=== PATIENT | female | born 1955 | race Caucasian/White ===

== ENCOUNTER 2018-01-10 16:39 | Outpatient (CLI) | payer BC, SELFPAY ==
[2018-01-10 17:03] LABS: HGB 12.1 g/dL (12.0-15.5); Mean Corp. HGB Concentration 33.6 g/dL (32.0-36.0); Mean Corpuscular Hemoglobin 32.9 pg (27.0-33.0); Mean Corpuscular Volume 97.8 fL (80-95); Mean Platelet Volume 9.1 fL (8.0-11.0); Platelet Count 277 x1000/uL (130-400); RBC 3.68 m/cumm (4.00-5.20); RBC Distribution Width 13.2 % (11.7-14.6); White Blood Cell Count 4.95 k/cumm (4.4-10.8)
[2018-01-10 19:36] LABS: ALT 33 U/L (12-78); AST 25 U/L (15-37); Alkaline Phosphatase 74 U/L (46-116); Bilirubin, Direct 0.12 mg/dL (0.00-0.20); Bilirubin, Total 0.5 mg/dL (0.2-1.0); CREATININE 0.82 mg/dL (0.55-1.02); Total Protein 6.5 g/dL (6.4-8.2)
== END 2018-01-10 16:59 ==
PROVIDERS: PCP Student in an Organized Health Care Education/Training Program; Visit Provider Internal Medicine Rheumatology
DX: M05.9 Rheumatoid arthritis with rheumatoid factor, unspecified (principal)
CPT/HCPCS: 80076; 85027; 82565

== ENCOUNTER 2018-04-12 16:38 | Outpatient (CLI) | payer BC, SELFPAY ==
[2018-04-12 17:31] LABS: HCT 38.7 % (36.0-46.0); HGB 12.7 g/dL (12.0-15.5); Mean Corp. HGB Concentration 32.8 g/dL (32.0-36.0); Mean Corpuscular Hemoglobin 32.1 pg (27.0-33.0); Mean Corpuscular Volume 97.7 fL (80-95); Platelet Count 264 x1000/uL (130-400); RBC 3.96 m/cumm (4.00-5.20); RBC Distribution Width 12.8 % (11.7-14.6); White Blood Cell Count 5.96 k/cumm (4.4-10.8)
[2018-04-12 19:37] LABS: ALT 26 U/L (12-78); AST 22 U/L (15-37); Albumin 4.2 g/dL (3.4-5.0); Alkaline Phosphatase 90 U/L (46-116); Bilirubin, Direct 0.14 mg/dL (0.00-0.20); Bilirubin, Total 0.6 mg/dL (0.2-1.0); CREATININE 0.78 mg/dL (0.55-1.02); Total Protein 7.1 g/dL (6.4-8.2)
== END 2018-04-12 16:58 ==
PROVIDERS: PCP Student in an Organized Health Care Education/Training Program; Visit Provider Internal Medicine Rheumatology
DX: M05.9 Rheumatoid arthritis with rheumatoid factor, unspecified (principal)
CPT/HCPCS: 36415; 80076; 85027; 82565

== ENCOUNTER 2018-06-14 16:40 | Outpatient (CLI) | payer BC, SELFPAY ==
--- NOTE | 2018-06-14 15:12 | DI.RAD_ITS ---
SYMPTOMS/DIAGNOSIS: UNRELENTING COUGH X 4 MONTHS, J06.9, ACUTE UPPER RESPIRATORY INFECTION, R05 PA AND LATERAL CHEST: The heart is normal in size. The lungs are clear. The mediastinal structures and pleura appear intact. SUMMARY: Normal chest.
== END 2018-06-14 17:00 ==
PROVIDERS: PCP Student in an Organized Health Care Education/Training Program; Visit Provider Family Medicine
DX: J06.9 Acute upper respiratory infection, unspecified (principal); R05 Cough
CPT/HCPCS: 71046

== ENCOUNTER 2018-11-01 09:12 | Outpatient (CLI) | payer BC, SELFPAY ==
[2018-11-01 10:01] LABS: HCT 36.9 % (36.0-46.0); HGB 12.3 g/dL (12.0-15.5); Mean Corp. HGB Concentration 33.3 g/dL (32.0-36.0); Mean Corpuscular Hemoglobin 32.3 pg (27.0-33.0); Mean Corpuscular Volume 96.9 fL (80-95); Platelet Count 305 x1000/uL (130-400); RBC 3.81 m/cumm (4.00-5.20); RBC Distribution Width 13.9 % (11.7-14.6); White Blood Cell Count 5.09 k/cumm (4.4-10.8)
[2018-11-01 11:17] LABS: ALT 26 U/L (12-78); AST 21 U/L (15-37); Albumin 3.9 g/dL (3.4-5.0); Alkaline Phosphatase 78 U/L (46-116); Anion Gap 10.6 mmol/L (3-11); BUN 16 mg/dL (7-18); Bilirubin, Total 0.5 mg/dL (0.2-1.0); CO2 28.4 mmol/L (21.0-32.0); CREATININE 0.81 mg/dL (0.55-1.02); Chloride 105 mmol/L (98-107); Glucose 96 mg/dL (70-100); Potassium 4.7 mmol/L (3.5-5.1); Sodium 144 mmol/L (136-145); Total Protein 6.5 g/dL (6.4-8.2)
== END 2018-11-01 09:32 ==
PROVIDERS: PCP Student in an Organized Health Care Education/Training Program; Visit Provider Internal Medicine Rheumatology
DX: E07.9 Disorder of thyroid, unspecified (principal); M06.9 Rheumatoid arthritis, unspecified; Z79.899 Other long term (current) drug therapy
CPT/HCPCS: 36415; 80053; 85027

== ENCOUNTER 2018-12-10 13:56 | Outpatient (CLI) | payer BC, SELFPAY ==
--- NOTE | 2018-12-10 13:54 | DI.RAD_ITS ---
EXAM: XR HIP RT COMPLETE AP PELVIS CLINICAL HISTORY: R hip pain. TECHNIQUE: 2D digital imaging was performed. COMPARISON: No exams were available for comparison FINDINGS: BONES: No acute fracture is present. There is mild acetabular spurring on the right present. The sac roiliac joints and symphysis pubis are well maintained. The bones are normally mineralized. JOINTS: There is mild narrowing of the right hip joint space. SOFT TISSUE: Normal. IMPRESSION: Mild degenerative changes of the right hip.
== END 2018-12-10 14:16 ==
PROVIDERS: PCP Student in an Organized Health Care Education/Training Program; Visit Provider Physician Assistant
DX: M25.551 Pain in right hip (principal); M16.11 Unilateral primary osteoarthritis, right hip
CPT/HCPCS: 73502

== ENCOUNTER 2019-03-30 10:29 | Outpatient (CLI) | payer BC, SELFPAY ==
[2019-03-30 11:07] LABS: HCT 37.9 % (36.0-46.0); HGB 12.3 g/dL (12.0-15.5); Mean Corp. HGB Concentration 32.5 g/dL (32.0-36.0); Mean Corpuscular Hemoglobin 31.5 pg (27.0-33.0); Mean Corpuscular Volume 97.2 fL (80-95); Mean Platelet Volume 9.6 fL (8.0-11.0); Platelet Count 296 x1000/uL (130-400); RBC Distribution Width 13.2 % (11.7-14.6); White Blood Cell Count 4.23 k/cumm (4.4-10.8)
[2019-03-30 12:20] LABS: ALT 22 U/L (14-59); AST 23 U/L (15-37); Albumin 4.1 g/dL (3.4-5.0); Alkaline Phosphatase 73 U/L (46-116); Bilirubin, Direct 0.13 mg/dL (0.00-0.20); Bilirubin, Total 0.5 mg/dL (0.2-1.0); CREATININE 0.75 mg/dL (0.55-1.02); Total Protein 6.3 g/dL (6.4-8.2)
== END 2019-03-30 10:49 ==
PROVIDERS: PCP Student in an Organized Health Care Education/Training Program; Visit Provider Internal Medicine Rheumatology
DX: M05.79 Rheumatoid arthritis with rheumatoid factor of multiple sites without organ or systems involvement (principal); M17.0 Bilateral primary osteoarthritis of knee; M06.9 Rheumatoid arthritis, unspecified; Z79.899 Other long term (current) drug therapy
CPT/HCPCS: 36415; 80076; 85027; 82565

== ENCOUNTER 2019-09-06 01:48 | Outpatient (CLI) | payer BC, SELFPAY ==
[2019-09-06 13:57] LABS: HCT 38.9 % (36.0-46.0); HGB 12.9 g/dL (12.0-15.5); Mean Corp. HGB Concentration 33.2 g/dL (32.0-36.0); Mean Corpuscular Hemoglobin 31.4 pg (27.0-33.0); Mean Corpuscular Volume 94.6 fL (80-95); Mean Platelet Volume 9.8 fL (8.0-11.0); Platelet Count 271 x1000/uL (130-400); RBC 4.11 m/cumm (4.00-5.20); RBC Distribution Width 12.6 % (11.7-14.6); White Blood Cell Count 4.19 k/cumm (4.4-10.8)
[2019-09-06 14:36] LABS: ESR 20 mm/hr (0-30)
[2019-09-06 14:52] LABS: ALT 29 U/L (14-59); AST 25 U/L (15-37); Albumin 3.8 g/dL (3.4-5.0); Alkaline Phosphatase 91 U/L (46-116); Bilirubin, Direct 0.13 mg/dL (0.00-0.20); Bilirubin, Total 0.5 mg/dL (0.2-1.0); C-Reactive Protein 0.11 mg/dL (0.0-0.3); Total Protein 6.5 g/dL (6.4-8.2)
[2019-09-06 14:56] LABS: ALT 23 U/L (14-59); AST 21 U/L (15-37); Albumin 3.8 g/dL (3.4-5.0); Alkaline Phosphatase 93 U/L (46-116); Anion Gap 8.7 mmol/L (3-11); BUN 16 mg/dL (7-18); Bilirubin, Total 0.5 mg/dL (0.2-1.0); CO2 26.3 mmol/L (21.0-32.0); CREATININE 0.86 mg/dL (0.55-1.02); Calcium 9.2 mg/dL (8.5-10.1); Chloride 104 mmol/L (98-107); Glucose 113 mg/dL (74-106); Potassium 4.1 mmol/L (3.5-5.1); Sodium 139 mmol/L (136-145); Total Protein 6.5 g/dL (6.4-8.2)
[2019-09-06 15:04] LABS: TSH (W/Ref FT4) 1.73 uIU/mL (0.36-3.74)
[2019-09-09 09:41] LABS: Cyclic Citrullinated Peptide 5.9 U/mL (<5.0)
[2019-09-09 14:40] LABS: TB Interpretation Negative (Negative); TB1 Ag minus Nil 0.01 IU/ml; TB2 Ag minus Nil 0.01 IU/mL
== END 2019-09-06 02:08 ==
PROVIDERS: PCP Student in an Organized Health Care Education/Training Program; Visit Provider Internal Medicine Rheumatology
DX: I10 Essential (primary) hypertension (principal); E07.9 Disorder of thyroid, unspecified; M05.79 Rheumatoid arthritis with rheumatoid factor of multiple sites without organ or systems involvement; Z79.899 Other long term (current) drug therapy
CPT/HCPCS: 36415; 80053; 80076; 85027; 85652; 86200; 84443; 86140; 86431; 86480

== ENCOUNTER 2020-04-20 03:26 | Outpatient (CLI) | payer BC, SELFPAY ==
[2020-04-20 16:24] LABS: HCT 35.6 % (36.0-46.0); HGB 11.6 g/dL (11.2-15.7); MCHC 32.6 % (32.0-36.0); MCV 98.3 fL (80-95); MPV 9.7 fL (8.0-11.0); Platelet Count 303 10^3/uL (130-400); RBC 3.62 10^6/uL (3.93-5.22); RDW 12.6 % (11.7-14.6); RDW-SD 45.2 fL
[2020-04-20 17:39] LABS: ALT 22 U/L (14-59); AST 23 U/L (15-37); Albumin 3.9 g/dL (3.4-5.0); Alkaline Phosphatase 76 U/L (46-116); Bilirubin, Direct 0.11 mg/dL (0.00-0.20); Bilirubin, Total 0.5 mg/dL (0.2-1.0); CREATININE 0.8 mg/dL (0.55-1.02); Total Protein 6.5 g/dL (6.4-8.2)
== END 2020-04-20 03:27 | disposition home or self-care (01) ==
LOC: LBO 03:26
PROVIDERS: PCP Student in an Organized Health Care Education/Training Program; Visit Provider Internal Medicine Rheumatology
DX: M05.79 Rheumatoid arthritis with rheumatoid factor of multiple sites without organ or systems involvement (principal); Z79.899 Other long term (current) drug therapy
CPT/HCPCS: 36415; 80076; 85027; 82565

== ENCOUNTER 2020-08-27 02:48 | Outpatient (CLI) | payer BC, SELFPAY ==
[2020-08-27 15:30] LABS: HCT 36.6 % (36.0-46.0); HGB 12.1 g/dL (11.2-15.7); MCH 30.8 pg (27.0-33.0); MCHC 33.1 % (32.0-36.0); MCV 93.1 fL (80-95); MPV 9.4 fL (8.0-11.0); Platelet Count 305 10^3/uL (130-400); RBC 3.93 10^6/uL (3.93-5.22); RDW 13.2 % (11.7-14.6); RDW-SD 44.8 fL; WBC 6.29 10^3/uL (4.4-10.8)
[2020-08-27 16:30] LABS: TSH (W/Ref FT4) 1.67 uIU/mL (0.36-3.74)
[2020-08-27 22:04] LABS: ALT 30 U/L (14-59); AST 23 U/L (15-37); Albumin 3.7 g/dL (3.4-5.0); Alkaline Phosphatase 86 U/L (46-116); Bilirubin, Direct 0.1 mg/dL (0.0-0.2); Bilirubin, Total 0.3 mg/dL (0.2-1.0); CREATININE 0.7 mg/dL (0.55-1.02); Total Protein 6.6 g/dL (6.4-8.2)
[2020-08-31 14:58] LABS: TB Interpretation Negative (Negative)
== END 2020-08-27 02:49 | disposition home or self-care (01) ==
LOC: LBO 02:48
PROVIDERS: PCP Student in an Organized Health Care Education/Training Program; Visit Provider Internal Medicine Rheumatology
DX: Z79.899 Other long term (current) drug therapy; M05.79 Rheumatoid arthritis with rheumatoid factor of multiple sites without organ or systems involvement
CPT/HCPCS: 36415; 80076; 85027; 82565; 84443; 86480

== ENCOUNTER 2020-11-05 02:07 | Outpatient (CLI) | payer BC, SELFPAY ==
--- NOTE | 2020-11-05 07:15 | DI.DEXA_ITS ---
Exam(s) XR DEXA BONE DENSITY W/WO LESLI EXAM: XR DEXA BONE DENSITY W/WO LESLI CLINICAL HISTORY: evaluate bone density, IMMUNODEFICIENCY DUE TO DRUG THERAPY, OSTEOPENIA TECHNIQUE: Routine DEXA evaluation of the lumbar spine, hip, or forearm. COMPARISON: CR XR HIP RT COMPLETE AP PELVIS from 12/10/2018 FINDINGS: Performed on a Hologic unit. Lateral image: No compression fracture evident. Lumbar Spine total T-score: -3.4 Hip total T-score:-2.0 Independent reading at the femoral neck yields a T-score of -1.8 Forearm total T-score: -3.2 IMPRESSION: Bone mineral density measures in the osteoporosis range. Fracture risk is high. Note: Any spine fracture indicates 5x risk for subsequent spine fracture and 2x risk for subsequent h ip fracture. World Health Organization criteria for BMD interpretation classify patients: Normal...... T- Score at or above -1.0 Osteopenic... T- Score between -1.0 and -2.5 Osteoporosis... T-Score at or below -2.5
== END 2020-11-05 02:27 ==
PROVIDERS: PCP Student in an Organized Health Care Education/Training Program; Visit Provider Student in an Organized Health Care Education/Training Program
DX: Z79.899 Other long term (current) drug therapy; Z13.820 Encounter for screening for osteoporosis; M85.89 Other specified disorders of bone density and structure, multiple sites; M81.0 Age-related osteoporosis without current pathological fracture
CPT/HCPCS: 77080

== ENCOUNTER 2021-02-09 02:46 | Outpatient (CLI) | payer MEDICARE, SELFPAY ==
[2021-02-09 13:40] LABS: HCT 37.3 % (36.0-46.0); HGB 12.2 g/dL (11.2-15.7); MCH 31.9 pg (27.0-33.0); MCHC 32.7 % (32.0-36.0); MCV 97.6 fL (80-95); MPV 9.1 fL (8.0-11.0); Platelet Count 287 10^3/uL (130-400); RBC 3.82 10^6/uL (3.93-5.22); RDW 13.4 % (11.7-14.6); RDW-SD 47.2 fL; WBC 5.19 10^3/uL (4.4-10.8)
[2021-02-09 14:55] LABS: ALT 34 U/L (14-59); AST 33 U/L (15-37); Albumin 4.3 g/dL (3.4-5.0); Alkaline Phosphatase 77 U/L (46-116); Bilirubin, Direct 0.2 mg/dL (0.0-0.2); Bilirubin, Total 0.8 mg/dL (0.2-1.0); CREATININE 0.9 mg/dL (0.55-1.02); Total Protein 6.7 g/dL (6.4-8.2)
== END 2021-02-09 02:47 | disposition home or self-care (01) ==
PROVIDERS: PCP Student in an Organized Health Care Education/Training Program; Visit Provider Internal Medicine Rheumatology
DX: M05.79 Rheumatoid arthritis with rheumatoid factor of multiple sites without organ or systems involvement (principal); Z79.899 Other long term (current) drug therapy
CPT/HCPCS: 36415; 80076; 85027; 82565

== ENCOUNTER 2021-07-13 02:40 | Outpatient (CLI) | payer MEDICARE, SELFPAY ==
[2021-07-13 07:42] LABS: HGB 12.1 g/dL (11.2-15.7); MCH 32.9 pg (27.0-33.0); MCHC 32.7 % (32.0-36.0); MCV 101 fL (80-95); MPV 9.3 fL (8.0-11.0); Platelet Count 277 10^3/uL (130-400); RBC 3.68 10^6/uL (3.93-5.22); RDW 13.9 % (11.7-14.6); RDW-SD 50.6 fL; WBC 3.99 10^3/uL (4.4-10.8)
[2021-07-13 08:33] LABS: ALT 62 U/L (14-59); AST 54 U/L (15-37); Albumin 3.8 g/dL (3.4-5.0); Alkaline Phosphatase 85 U/L (46-116); Bilirubin, Direct 0.2 mg/dL (0.0-0.2); Bilirubin, Total 0.7 mg/dL (0.2-1.0); CREATININE 0.8 mg/dL (0.55-1.02); Total Protein 6.7 g/dL (6.4-8.2)
== END 2021-07-13 02:41 | disposition home or self-care (01) ==
PROVIDERS: PCP Student in an Organized Health Care Education/Training Program; Visit Provider Internal Medicine Rheumatology
DX: M05.79 Rheumatoid arthritis with rheumatoid factor of multiple sites without organ or systems involvement (principal); Z79.899 Other long term (current) drug therapy
CPT/HCPCS: 36415; 80076; 85027; 82565

== ENCOUNTER → 2021-10-01 09:50 | Outpatient (CLI) | payer MEDICARE, SELFPAY ==
--- NOTE | 2021-10-01 09:30 | DI.RAD_ITS ---
Exam(s) XR KNEE RT 3V AP,LAT,TAMARA EXAM: XR KNEE RT 3V AP,LAT,TAMARA CLINICAL HISTORY: ARTIFICIAL KNEE JOINT Z96.651-PAIN M25.569-INSTABILITY M25.369. TECHNIQUE: 2D digital imaging was performed. Three views. COMPARISON: No exams were available for comparison FINDINGS: BONES: There is a total knee prosthesis as well as a fixation plate along the lateral aspect of the d istal tibia. No evidence of loosening. No acute fracture is present. No bony destructive lesion is seen. JOINTS: The knee is normally aligned. No joint effusion is seen. SOFT TISSUE: Normal. IMPRESSION: Orthopedic hardware. No acute abnormality. DATA REPOSITORY: RADIATION DOSE DELIVERED:
--- NOTE | 2021-10-01 09:30 | DI.RAD_ITS ---
Exam(s) XR FOOT LT COMPLETE EXAM: XR FOOT LT COMPLETE CLINICAL HISTORY: STRESS FRACTURE-M84.30XA..EVALUATE BONY PATH. TECHNIQUE: 2D digital imaging was performed. Three views. COMPARISON: No exams were available for comparison FINDINGS: BONES: No acute fracture is present. No findings to indicate a stress fracture. No bony destructive lesion is seen. JOINTS: No dislocation present. No significant degenerative changes. SOFT TISSUE: Normal. No significant swelling. IMPRESSION: Unremarkable radiographs of the left foot. DATA REPOSITORY: RADIATION DOSE DELIVERED:
== END ==
PROVIDERS: PCP Student in an Organized Health Care Education/Training Program; Visit Provider Student in an Organized Health Care Education/Training Program
DX: Z96.651 Presence of right artificial knee joint; M25.561 Pain in right knee
CPT/HCPCS: 73562; 73630

== ENCOUNTER → 2021-12-20 01:45 | Outpatient (CLI) | payer MEDICARE, SELFPAY ==
--- NOTE | 2021-12-20 13:45 | DI.RAD_ITS ---
Exam(s) XR FOOT RT LIMITED EXAM: XR FOOT RT LIMITED CLINICAL HISTORY: bilat foot pain, polyarthralgia, pmhx RA, ? bony erosions, M05.9. TECHNIQUE: 2D digital imaging was performed. Two views. COMPARISON: CR XR FOOT LT COMPLETE from 10/01/2021 FINDINGS: BONES: No acute fracture is present. No bony destructive lesion is seen. JOINTS: No dislocation present. Joint spaces are maintained. SOFT TISSUE: Normal. IMPRESSION: Unremarkable radiographs of the right foot. DATA REPOSITORY: RADIATION DOSE DELIVERED:
--- NOTE | 2021-12-20 13:45 | DI.RAD_ITS ---
Exam(s) XR ARTHRITIS SERIES EXAM: XR ARTHRITIS SERIES CLINICAL HISTORY: BILAT HAND PAIN, PMHX RA, OA OF HAND, ? BONY EROSIONS, M05.9, M19.049. TECHNIQUE: 2D digital imaging was performed. Two views of both hands. COMPARISON: No exams were available for comparison FINDINGS: BONES: No acute fracture is present. No bony destructive lesion is seen. JOINTS: No dislocation present. Mild periarticular spurring at the interphalangeal joints and 1st ca rpal metacarpal joint. SOFT TISSUE: Normal. IMPRESSION: Mild degenerative changes. No bony erosions are identified. DATA REPOSITORY: RADIATION DOSE DELIVERED:
--- NOTE | 2021-12-20 13:45 | DI.RAD_ITS ---
Exam(s) XR CHEST 2V PA LATERAL EXAM: XR CHEST 2V PA LATERAL CLINICAL HISTORY: PMHX RA, BASELINE CXR, ? ILD, FATIGUE, M05.9, R53.83 TECHNIQUE: 2D digital imaging was performed. COMPARISON: CR XR CHEST 2V PA LATERAL from 06/14/2018 FINDINGS: HEART: Normal size. Aorta: PULMONARY VASCULATURE: Normal. LUNGS: Clear. No visible interstitial changes. PLEURAL SPACE: No pleural effusion or pneumothorax. BONE:Unremarkable for age. IMPRESSION: No acute abnormality. DATA REPOSITORY: RADIATION DOSE DELIVERED:
--- NOTE | 2021-12-20 13:45 | DI.RAD_ITS ---
Exam(s) XR FOOT LT LIMITED EXAM: XR FOOT LT LIMITED CLINICAL HISTORY: bilat foot pain, polyarthralgia, pmhx RA, ? bony erosions, M05.9. TECHNIQUE: 2D digital imaging was performed. 2 views. COMPARISON: CR XR FOOT RT LIMITED from 12/20/2021 FINDINGS: BONES: No acute fracture is present. No bony destructive lesion is seen. JOINTS: No dislocation present. The joint spaces are maintained. No periarticular erosions. No si gnificant degenerative changes. SOFT TISSUE: Normal. IMPRESSION: Unremarkable radiographs of the left foot. DATA REPOSITORY: RADIATION DOSE DELIVERED:
== END ==
PROVIDERS: PCP Student in an Organized Health Care Education/Training Program; Visit Provider Student in an Organized Health Care Education/Training Program
DX: M79.641 Pain in right hand (principal); M79.642 Pain in left hand; M19.041 Primary osteoarthritis, right hand; M19.042 Primary osteoarthritis, left hand; M18.0 Bilateral primary osteoarthritis of first carpometacarpal joints; D84.821 Immunodeficiency due to drugs; R53.83 Other fatigue; M05.8A Other rheumatoid arthritis with rheumatoid factor of other specified site; Z79.899 Other long term (current) drug therapy
CPT/HCPCS: 71046; 73120; 73620

== ENCOUNTER 2021-12-27 09:55 | Outpatient (CLI) | payer MEDICARE, SELFPAY ==
--- NOTE | 2021-12-27 09:15 | DI.RAD_ITS ---
Exam(s) XR HIP RT COMPLETE AP PELVIS EXAM: XR HIP RT COMPLETE AP PELVIS CLINICAL HISTORY: R hip pain. TECHNIQUE: 2D digital imaging was performed of the right hip. Two images were obtained. AP pelvis a nd lateral right hip views were obtained. COMPARISON: CR XR HIP RT COMPLETE AP PELVIS from 12/10/2018 FINDINGS: BONES: No acute fracture is present. No bony destructive lesion is seen. JOINTS: No dislocation present. In the right hip there is moderate narrowing of the joint space and m arginal osteophytes. SOFT TISSUE: Normal. IMPRESSION: Moderate degenerative changes of the right hip. DATA REPOSITORY: RADIATION DOSE DELIVERED:
== END 2021-12-27 09:56 | disposition home or self-care (01) ==
LOC: DIORS 09:56
PROVIDERS: PCP Student in an Organized Health Care Education/Training Program; Referring Provider Student in an Organized Health Care Education/Training Program; Visit Provider Physician Assistant
DX: M65.342 Trigger finger, left ring finger (principal); M65.311 Trigger thumb, right thumb; M16.11 Unilateral primary osteoarthritis, right hip; Z96.651 Presence of right artificial knee joint
CPT/HCPCS: 20550; 73502; J1030

== ENCOUNTER → 2022-01-13 02:30 | Outpatient (CLI) | payer MEDICARE, SELFPAY ==
--- NOTE | 2022-01-13 08:30 | DI.RAD_ITS ---
Exam(s) RF JOINT INJECTION FLUORO GUID EXAM: RF JOINT INJECTION FLUORO GUID CLINICAL HISTORY: R HIP INJ UNDER FLUORO,rt hip pain, m25.551 TECHNIQUE: 2D and realtime digital imaging was performed. COMPARISON: No exams were available for comparison FINDINGS: C-arm fluoroscopy was utilized by Dr. Encarnacion during right hip injection. Hard copy shows intra-art icular injection. IMPRESSION: RADIATION DOSE DELIVERED: suresh Pritchett=0.11 mGy Total DLP
[2022-01-13] MEDS: Omnipaque 300 MG/ML 10 ML BTL IJ (15:45)
[2022-01-13] MEDS: methylPREDNISolone ACETATE 80 MG/ML VIAL IM (15:46)
[2022-01-13] MEDS: Bupivacaine 0.5% Pres-Free 10 ML VIAL 5 ML IJ (15:46)
--- NOTE | 2022-01-13 18:56 | W.PROCNOTE ---
Date of service: 01/13/22 Time of Service: 14:20 Procedure Note Date of procedure: 01/13/22 Procedure: Right Hip Injection with Fluoroscopic Guidance Surgeon/Proceduralist/Physician: Jonathan Encarnacion Procedure Diagnosis: Right Hip and Leg Pain Procedure Indications: Carrie has had persistent pain of the RIGHT hip and thigh. Noninvasive measures have been tried. To serve as both diagnostic and therapeutic, an injection under fluoroscopy was recommended. I had discussed the risks of the procedure and the patient elected to proceed. Procedure Description: Carrie was greeted in the flouroscopy room. The correct side was identified and the consent was reviewed with the patient and signed. The patient was then placed in the supine position on the fluoroscopy table. The RIGHT hip was then prepped with Chloraprep. The anterolateral injection starting point was identiifed by bony landmarks and fluoroscopy. The skin and soft tissue in the tract of the injection was anesthetized with 1% Lidocaine. A spinal needle was then inserted deep into the hip joint at the level of the lateral femoral neck under fluoroscopic guidance. A small amount of Omnipaque solution was injected to confirm intraarticular placement. Once confirmed, the hip was injected with 5cc of 0.5% Bupivicaine and 80mg of Depo-Medrol. A bandaid was placed on the injection site. The patient tolerated the procedure well and noted improvement in pre-injection pain.
== END ==
PROVIDERS: PCP Student in an Organized Health Care Education/Training Program; Visit Provider Student in an Organized Health Care Education/Training Program
DX: M25.551 Pain in right hip (principal)
CPT/HCPCS: 20610; 77002; J1040

== ENCOUNTER 2022-03-15 04:00 | Outpatient (CLI) | payer MEDICARE, SELFPAY ==
[2022-03-15 15:53] LABS: Absolute Basophil Count 0.01 10^3/uL (0.0-0.2); Absolute Eosinophil Count 0.03 10^3/uL (0.0-0.7); Absolute Lymphocyte Count 0.97 10^3/uL (1.2-3.4); Absolute Monocyte Count 0.23 10^3/uL (0.1-0.8); Absolute Neutrophil Count 3.78 10^3/uL (1.2-6.7); Basophils % 0.2; Eosinophils % 0.6; HCT 37.2 % (36.0-46.0); HGB 12.6 g/dL (11.2-15.7); Lymphocytes % 19.3; MCH 34.4 pg (27.0-33.0); MCHC 33.9 % (32.0-36.0); MCV 102 fL (80-95); MPV 9.2 fL (8.0-11.0); Monocytes % 4.6; Neutrophils % 75.3; Platelet Count 273 10^3/uL (130-400); RBC 3.66 10^6/uL (3.93-5.22); RDW 12.7 % (11.7-14.6); RDW-SD 47.7 fL; WBC 5.02 10^3/uL (4.4-10.8)
[2022-03-15 16:43] LABS: ALT 30 U/L (14-59); AST 30 U/L (15-37); Albumin 3.9 g/dL (3.4-5.0); Alkaline Phosphatase 102 U/L (46-116); Anion Gap 3.8 mmol/L (3-11); BUN 18 mg/dL (7-18); Bilirubin, Total 0.7 mg/dL (0.2-1.0); CO2 32.2 mmol/L (21.0-32.0); CREATININE 0.8 mg/dL (0.55-1.02); Calcium 9.2 mg/dL (8.5-10.1); Chloride 105 mmol/L (98-107); Estimated GFR 80.21 (mL/min/1.73m2); Glucose 82 mg/dL (74-106); Potassium 4.2 mmol/L (3.5-5.1); Sodium 141 mmol/L (136-145); Total Protein 7.3 g/dL (6.4-8.2)
== END 2022-03-15 04:01 | disposition home or self-care (01) ==
PROVIDERS: PCP Student in an Organized Health Care Education/Training Program; Visit Provider Student in an Organized Health Care Education/Training Program
DX: M05.9 Rheumatoid arthritis with rheumatoid factor, unspecified (principal); R53.83 Other fatigue; D84.821 Immunodeficiency due to drugs; Z79.899 Other long term (current) drug therapy
CPT/HCPCS: 36415; 80053; 85025

== ENCOUNTER → 2022-05-06 10:08 | Outpatient (BNVA) | payer MEDICARE, SELFPAY | PROVIDERS: PCP Student in an Organized Health Care Education/Training Program; Referring Provider Student in an Organized Health Care Education/Training Program; Visit Provider Student in an Organized Health Care Education/Training Program | DX: M70.51 Other bursitis of knee, right knee (principal); M16.11 Unilateral primary osteoarthritis, right hip; Z96.651 Presence of right artificial knee joint | CPT/HCPCS: 20610; J1030 ==

== ENCOUNTER 2022-06-02 04:21 | Outpatient (CLI) | payer MEDICARE, SELFPAY ==
[2022-06-02 15:21] LABS: HCT 38.5 % (36.0-46.0); HGB 12.9 g/dL (11.2-15.7); MCH 33.4 pg (27.0-33.0); MCHC 33.5 % (32.0-36.0); MCV 100 fL (80-95); Platelet Count 280 10^3/uL (130-400); RBC 3.86 10^6/uL (3.93-5.22); RDW 13.2 % (11.7-14.6); RDW-SD 47.9 fL; WBC 5.57 10^3/uL (4.4-10.8)
[2022-06-02 16:18] LABS: Anion Gap 5.7 mmol/L (3-11); BUN 21 mg/dL (7-18); CO2 29.3 mmol/L (21.0-32.0); Calcium 9.7 mg/dL (8.5-10.1); Chloride 103 mmol/L (98-107); Estimated GFR 60.98 (mL/min/1.73m2); Glucose 85 mg/dL (74-106); Potassium 4.1 mmol/L (3.5-5.1); Sodium 138 mmol/L (136-145)
== END 2022-06-02 04:22 | disposition home or self-care (01) ==
LOC: LBO 04:21
PROVIDERS: PCP Student in an Organized Health Care Education/Training Program; Visit Provider Student in an Organized Health Care Education/Training Program
DX: M16.11 Unilateral primary osteoarthritis, right hip (principal); Z01.818 Encounter for other preprocedural examination
CPT/HCPCS: 36415; 80048; 85027

== ENCOUNTER 2022-06-02 14:26 | Outpatient (CLI) | payer MEDICARE, SELFPAY ==
--- NOTE | 2022-06-02 13:00 | DI.RAD_ITS ---
Exam(s) XR PELVIS AP EXAM: XR PELVIS AP CLINICAL HISTORY: pre op R MARGUERITE. TECHNIQUE: 2D digital imaging was performed. One image was obtained. COMPARISON: CR XR HIP RT COMPLETE AP PELVIS from 12/27/2021 FINDINGS: BONES: No acute fracture is present. No bony destructive lesion is seen. JOINTS: No dislocation present. There is moderate narrowing of the right hip joint space. Small oste ophytes are seen at the right femoral head. There is mild narrowing of the left hip joint space. SOFT TISSUE: Normal. IMPRESSION: Osteoarthritis of the hips, right greater than left. DATA REPOSITORY: RADIATION DOSE DELIVERED:
== END 2022-06-02 14:27 | disposition home or self-care (01) ==
LOC: DIORS 14:27
PROVIDERS: PCP Student in an Organized Health Care Education/Training Program; Visit Provider Physician Assistant
DX: M16.11 Unilateral primary osteoarthritis, right hip (principal); Z01.818 Encounter for other preprocedural examination
CPT/HCPCS: 72170

== ENCOUNTER 2022-06-08 08:24 | Day surgery (SDC) | payer MEDICARE, SELFPAY ==
[2022-06-08] VITALS (9 sets, daily range): BP systolic 96–145; BP diastolic 56–94; PULSE 53–70; RESP 14–18; TEMP 36.3–36.5; O2SAT 98–100; BMI 22.9
[2022-06-08] MEDS: Acetaminophen 500 MG TAB 1000 MG PO (09:01)
[2022-06-08] MEDS: Celecoxib 200 MG CAP 400 MG PO (09:01)
[2022-06-08] MEDS: Lactated Ringers 1,000 ML 80 ML IV (09:25)
--- NOTE | 2022-06-08 10:20 | W.ANESPRE ---
General Info Date of Service Date Performed: 06/08/22 Height: 5 ft 9 in Weight: 70.6 kg Body Mass Index (BMI): 22.9 Surgical Procedure: Operation Date: 06/08/22 12:05 Proposed Procedure Side Surgeon p Hip Total Hip Anterior Right Jonathan Encarnacion MD Meds Allergies and Home Medications Allergies Allergy/AdvReac Type Severity Reaction Status Date / Time No Known Drug Allergies Allergy Verified 06/08/22 08:45 Home Medication Medication Instructions Recorded naproxen sodium 220 mg capsule 220 mg PO BID PRN 11/01/18 (Aleve) methotrexate sodium 2.5 mg tablet 25 mg PO weekly #8 tab-caps 06/19/20 acyclovir 400 mg tablet 400 mg PO Q8H #42 tabs 08/22/21 ketoconazole 2 % topical cream 1 applic topical DAILY 02/11/22 fluoxetine 20 mg tablet 20 mg PO DAILY #90 tabs 03/30/22 folic acid 1 mg tablet 3 mg PO DAILY methotrexate rx for 03/30/22 RA. #90 tab-caps levothyroxine 50 mcg tablet 50 mcg PO DAILY #90 tab-caps 03/30/22 trazodone 50 mg tablet 50 mg PO HS #90 tab-caps 03/30/22 valacyclovir 500 mg tablet 500 mg PO DAILY HSV Suppression Tx 03/30/22 #90 tabs alendronate 70 mg tablet 70 mg PO QWEEK #14 tabs 05/05/22 mupirocin 2 % topical ointment 1 applic topical TID #22 grams 05/05/22 acetaminophen 500 mg tablet 1,000 mg PO QID PRN 06/08/22 (Tylenol Extra Strength) calcium carbonate 600 mg-vitamin 1 tab PO 06/08/22 D3 10 mcg (400 unit) tablet (Calcium with Vitamin D) ibuprofen 200 mg tablet 400 mg PO Q6H PRN 06/08/22 multivitamin 1 tab DAILY 06/08/22 Current Visit Medications: Current Medications Generic Name Dose Route Start Last Admin Trade Name Freq PRN Reason Stop Dose Admin Acetaminophen 1,000 mg 06/08/22 06:00 06/08/22 09:01 Acetaminophen 500 Mg Tab PO 06/08/22 16:00 1,000 mg PREOP ERIC Administration Celecoxib 400 mg 06/08/22 06:00 06/08/22 09:01 Celecoxib 200 Mg Cap PO 06/08/22 16:00 400 mg PREOP ERIC Administration Tranexamic Acid 1,000 mg/ 60 mls @ 360 mls/hr 06/08/22 06:00 Sodium Chloride IV 06/08/22 16:00 PREOP ERIC Ringer's Solution 1,000 mls @ 80 mls/hr 06/08/22 06:00 IV 07/07/22 23:59 INFUSION ERIC Cefazolin Sodium/Dextrose 2 gm in 50 mls @ 100 mls/hr 06/08/22 06:00 Ancef Duplex IVPB 07/07/22 23:59 PREOP ERIC IV Miscellaneous Supplies 1 each 06/08/22 06:00 Iv Access IV 07/07/22 23:59 DIRECTED ERIC Sodium Chloride 0 ml 06/08/22 06:00 Normal Saline Flush 10 Ml Syr IV 07/07/22 23:59 PRN PRN Sodium Chloride 0 ml 06/08/22 06:00 Normal Saline 10 Ml Vial IJ 07/07/22 23:59 DIRECTED PRN Sterile Water 0 ml 06/08/22 06:00 Water,Injection,Sterile 10 Ml Vial IJ 07/07/22 23:59 DIRECTED PRN PFSH Active Problems Active Problems: Problem Status Onset Code Advance directive in chart 05/18/16 Z78.9 Anxiety F41.9 Diverticulosis of sigmoid colon 10/07/16 K57.30 Hypothyroidism (acquired) E03.9 Insomnia G47.00 Malignant neoplasm of unspecified site of right female breast 04/24/15 C50.911 Osteoarthritis of both knees M17.0 Osteopenia 12/26/13 M85.80 Rheumatoid arthritis M06.9 Screening for hyperlipidemia 05/20/16 Z13.220 Hx of breast lump removal Z98.890 Thyroid disease E07.9 Hearing loss sensory, bilateral H90.3 Abnormal auditory perception of right ear H93.291 Primary osteoarthritis of right hip M16.11 Trochanteric bursitis, right hip M70.61 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 Possible gait change 2' rt knee instability? Left outer pain, quite sensitive! Osteoarthritis Knees Postmenopausal LMP age 46 s/p HRT stopped in 2009 Surgical History Surgical History (Updated 06/08/22 @ 08:51 by Palma Jacobson) Breast, Lumpectomy (~2010) R breast cancer Ganglion Cyst Excision R ankle Hx of colonoscopy Ligation of fallopian tube Open Carpal Tunnel release (~02/2006) Right carpal tunnel release Replacement of total knee joint (08/17/16) R knee, Dr George Veronica, Monie Nam Right tibial plateau fx ORIF (03/03/10) Tobacco Smoking/Tobacco Use Status: Former Tobacco Use Alcohol Alcohol Intake: current Alcohol intake frequency: 0-2 drinks per day Alcohol type: wine Substance Use Substance use: Never Substance use type: does not use Details: alcohol: t-1, 2 glasses Vital Signs and Lab Results Vital Signs Most Recent Vital Signs in EMR: Most Recent Vital Signs Temp Pulse Resp BP Pulse Ox 36.5 C 61 16 131/87 99 06/08/22 09:09 06/08/22 09:09 06/08/22 09:09 06/08/22 09:09 06/08/22 09:09 Lab Results Blood Type / Crossmatch: No Data to Display Complete Blood Count: White Blood Count 5.57 10^3/uL (4.4-10.8) 06/02/22 15:16 Red Blood Count 3.86 10^6/uL (3.93-5.22) L 06/02/22 15:16 Hemoglobin 12.9 g/dL (11.2-15.7) 06/02/22 15:16 Hematocrit 38.5 % (36.0-46.0) 06/02/22 15:16 Platelet Count 280 10^3/uL (130-400) 06/02/22 15:16 Complete Metabolic Panel: Sodium 138 mmol/L (136-145) 06/02/22 15:16 Potassium 4.1 mmol/L (3.5-5.1) 06/02/22 15:16 Chloride 103 mmol/L (98-107) 06/02/22 15:16 Carbon Dioxide 29.3 mmol/L (21.0-32.0) 06/02/22 15:16 BUN 21 mg/dL (7-18) H 06/02/22 15:16 Creatinine 1.0 mg/dL (0.55-1.02) 06/02/22 15:16 Est GFR (CKD-EPI 2020) 60.98 (mL/min/1.73m2) 06/02/22 15:16 Calcium 9.7 mg/dL (8.5-10.1) 06/02/22 15:16 Glucose 85 mg/dL (74-106) 06/02/22 15:16 Liver Function Panel: No Data to Display Coagulation Panel: No Data to Display Cardiac Panel: No Data to Display Arterial Blood Gas: No Data to Display Venous Blood Gas: No Data to Display Pancreas Panel: No Data to Display Thyroid Panel: No Data to Display Infectious Disease: No Data to Display Blood Cultures: No Data to Display Toxicology Panel: No Data to Display Anesthesia Assessment and Plan Anesthesia History Personal History: No History of Anesthesia Complications Family History: Family History Unknown Exercise Tolerance Exercise Tolerance: Metabolic Equivalents>4 Pertinent Negatives Pertinent Negatives: No Symptoms of GERD, No Major Cardiovascular Symptoms or Complaints and No Major Pulmonary Symptoms or Complaints Cardiac & Pulmonary Exam Cardiac Exam: Normal S1/S2 Heart Sounds Pulmonary Exam: Clear Bilateral Breath Sounds Implantable Cardiac Device Does patient have a Pacemaker or an ICD?: No Airway Exam Known Difficult Airway: No Mallampati Class: 1 Mouth Opening: Normal (> 3cm) Thyromental Distance: Greater than 3 cm Neck Range of Motion: Full ROM Neck Circumference: Normal Teeth Condition: Normal Dentition ASA Classification ASA Score: ASA 2 Emergency Case?: No NPO Status NPO Status: NPO Clears >2 hours, Solids >8 hours Anesthesia Plan Resuscitation Status: Full Code Anesthesia Technique: Spinal Anesthesia Airway Planned: Natural Airway Monitors Used: Standard Monitors
[2022-06-08] MEDS: ceFAZolin 2 GM/50 ML BAG IVPB (11:46)
--- NOTE | 2022-06-08 12:51 | DI.RAD_ITS ---
Exam(s) XR HIP RT IN OR EXAM: XR HIP RT IN OR CLINICAL HISTORY: OSTEOARTHRITIS RIGHT HIP TECHNIQUE: 2D and realtime digital imaging was performed. CONTRAST MATERIAL: Refer to procedure report. COMPARISON: CR XR PELVIS AP from 06/02/2022 FINDINGS: Fluoroscopy was provided for Dr. Encarnacion during the performance of a right hip arthroplasty. Alexandra loomis refer to the procedure report for complete details. Ka,r=1.95 mGy IMPRESSION: RADIATION DOSE DELIVERED:
--- NOTE | 2022-06-08 13:21 | PDOC.DSDIS_ITS ---
Date of service: 06/08/22 Time of Service: 13:21 Discharge Plan Disposition Patient Disposition: Home Condition: Good Discharge Details Reason For Visit: R THR Attending Provider: Jonathan Encarnacion Primary Care Provider: Haylee Campoverde Home Meds and New Rx's Prescriptions: New acetaminophen 500 mg tablet 1,000 mg PO TID Qty: 90 3RF aspirin 81 mg tablet,delayed release (DR/EC) 81 mg PO BID Qty: 60 0RF celecoxib 200 mg capsule 200 mg PO BID Qty: 60 0RF pantoprazole 40 mg tablet,delayed release (DR/EC) 40 mg PO DAILY Qty: 30 0RF dexamethasone 4 mg tablet 4 mg PO DAILY Qty: 2 0RF oxycodone 5 mg tablet 5 mg PO Q4H MDD 6 tabs PRN (Reason: pain) Qty: 20 0RF Continued acyclovir 400 mg tablet 400 mg PO Q8H Qty: 42 1RF Patient Comments: pt. no longer uses Rx Instructions: 3/day for 14 days alendronate 70 mg tablet 70 mg PO QWEEK Qty: 14 3RF Patient Comments: hasnt started Rx Instructions: Start Osteoporosis Tx mupirocin 2 % ointment 1 applic topical TID Qty: 22 1RF Rx Instructions: Trial for left nostril methotrexate sodium 2.5 mg tablet 25 mg PO weekly Qty: 8 Rx Instructions: Source: production superintendent; increased to 25mg weekly (11/25/20). EO ketoconazole 2 % cream 1 applic topical DAILY Rx Instructions: 02/07/22 [place] [facility] [place] 50 mg tablet 50 mg PO HS Qty: 90 3RF valacyclovir 500 mg tablet 500 mg PO DAILY Qty: 90 3RF Rx Instructions: Suppressive Therapy fluoxetine 20 mg tablet 20 mg PO DAILY Qty: 90 3RF folic acid 1 mg tablet 3 mg PO DAILY Qty: 90 3RF levothyroxine 50 mcg tablet 50 mcg PO DAILY Qty: 90 3RF Rx Instructions: Take in the morning on an empty stomach, at least 30-60 minutes before food. multivitamin Tablet 1 tab DAILY calcium carbonate-vitamin D3 [Calcium with Vitamin D] 600 mg-10 mcg (400 unit) Tablet 1 tab PO Discontinued naproxen sodium [Aleve] 220 mg capsule 220 mg PO BID PRN Patient Comments: hip pain 11/01/18 cgc acetaminophen [Tylenol Extra Strength] 500 mg Tablet 1,000 mg PO QID PRN ibuprofen 200 mg Tablet 400 mg PO Q6H PRN Discharge Instructions Additional Instructions: Total Hip Discharge Instructions Activity: The most important activity is to walk. You should try to take short walks a few times a day. You have no restrictions on movement or positioning, but do not try to force what you do. You will find some stiffness and weakness with hip flexion (lifting your knee). Do not try to strengthen this too early, continue to practice walking and stairs and this will come. - Outpatient physical therapy can be helpful to help return you to a normal gait and improve your flexibility and strength. This can start around 2 weeks. For some patients, it?s not necessary. Usually this is determined at the time of discharge or at the first post-operative visit. - You should wear the SRINI hose on both legs for 2 weeks. Dressing: Keep the surgical dressing in place for at least one week. After the first week it may be removed and replace with light gauze and tape or nothing. It may get wet after 3 days but avoid soaking the dressing. If it gets wet, just lightly pat dry. It is important to always keep some gauze between skin folds, especially when you are sitting. Spend some time with the wound exposed when you are lying flat as the incision does wrinkle onto itself. Medications: - You should take Tylenol and an anti-inflammatory Celebrex as your primary pain control medications. If the Celebrex is too expensive or not covered, please call the office for another alternative (Advil/Ibuprofen or Naproxen/Aleve). - You have been prescribed a stronger pain medication Oxycodone for breakthrough pain, take as needed as prescribed. - You have also been prescribed a stomach acid reduction agent Pantoprozole to help reduce stomach acid and reflux. - You have also been prescribed Decadron to help with post-operative nausea and pain. You will take this for two days starting tomorrow. - You will be taking Aspirin 81mg twice a day for DVT prevention unless instructed otherwise. - If you have constipation you should take Colace or Miralax (both saln-qph-qjoocol). It takes most people 3-4 days to have a bowel movement. Follow-up: 2 weeks If you have any acute concerns or questions, please do not hesitate to contact the office at [phone]. You may contact Dr. Encarnacion with any questions after hours through the hospital at [phone] or on his cell phone at [phone]. Stand Alone Forms: Anesthesia Discharge Inst[facility] Elayne Hu ([facility]) Referrals: Jonathan Encarnacion MD [ [facility] ST[facility]FF PHYSICIAN] - 06/23/22 10:30 am Equipment/Supplies: Walker Activity:: Activity as Tolerated Shower/Bathe:: 72 hours Diet:: As Tolerated Discharge Orders Discharge Orders: Discharge Order (Routine); Ordered 06/08/22 Ordered By: Jonathan Encarnacion DS: Diagnosis Discharge Diagnosis (1) Primary osteoarthritis of right hip: Status: Chronic
--- NOTE | 2022-06-08 14:06 | W.PM.OP ---
Date of service: 06/08/22 Time of Service: 13:00 Operative Note Operative Note DATE OF PROCEDURE: 06/08/22 PRE-OP DIAGNOSIS: Right Hip Osteoarthritis POST-OP DIAGNOSIS: same PROCEDURE: Right Anterior Total Hip Arthroplasty with Intraoperative Navigation SURGEON: Jonathan Encarnacion CHAMBER WORKER: Chet Brower ANESTHESIA TYPE: Spinal Refer to Anesthesia Record ESTIMATED BLOOD LOSS: 150 PATHOLOGY: none sent TOURNIQUET TIME: 0 COMPLICATIONS: None Patient was transported to: PACU Patient's condition: stable Implants: 1. Depuy [place] Acetabular Component, 52mm 2. Depuy Acetabular Liner, [id number] 3. Depuy Corail Standard Collared Femoral Stem, Size 14 4. Depuy Altrx Ceramic Femoral Head, Size 36+5mm Indications: I have seen Carrie in clinic for symptoms of hip arthritis, confirmed with radiographic findings. She has exhausted nonoperative methods and was having significant limitations in daily function and desired better function and less pain. I discussed the technical details of a hip replacement. I explained the risks of the procedure to include, but not limited to, bleeding, infection, pain, stiffness, fracture, damage to nerves and vessels, damage to muscles and tendons, loosening, instability, leg length inequality, need for repeat procedure, blood clot and cardiopulmonary demise. Despite these risks, Carrie elected to proceed. Findings: There was significant signs of arthritis throughout the hip. Procedure Description: Carrie was greeted in the preoperative holding area where the correct side was identified and marked. The consent was reviewed with the patient and signed. The history and physical was updated. All questions were answered. She was taken back to the operating room. A spinal anesthestic was then administered. The feet were wrapped with cast padding and Coban and then placed into the boot liners and then into the boots. Care was taken to protect the skin and make sure the heels were fully down and the boots were stable. The patient was then positioned onto the HANA table. Both legs were held in a neutral position. SCDs were applied. The patient was then slid down onto a peroneal post. Prophylactic antibiotics in the form of Cefazolin were administered. 1g of Tranxemic Acid was given intravenously within 30 minutes of incision. The right leg was then prepped with Chloraprep and draped in a standard fashion. A second prep with Chloraprep was performed prior to placement of a shower-curtain type drape with Iodine impregnated skin protection. A timeout to confirm correct identity, side and site, procedure, allergies, anesthesia, and medical concerns was performed. An obliquely oriented incision was made starting lateral to the ASIS and running distal over the Tensor Fascia Shaina (TFL) muscle belly toward the fibular head, approximately 10cm. The skin and soft tissue was dissected sharply, through Marcia?s fascia, and to the fascia of the TFL. With the fascia and superior border of the IT band identified, the fascia was incised with a new knife just above any perforators from the IT band. The TFL muscle belly was bluntly dissected away from the fascia and moved laterally. The fat between TFL and rectus was identified to ensure the dissection was not within the TFL. Blunt dissection created space between abductors and the capsule and retractor was placed over the lateral femoral neck. The fibers of the rectus femoris tendon were identified and these were freed from the anterior capsule. A second cobra retractor was placed around the medial femoral neck. The TFL was further retracted laterally to show the deep fascia. Careful dissection through this layer identified three main crossing vessels of the lateral femoral circumflex. These were cauterized in multiple locations and then cut without any noticeable bleeding. The TFL was further released bluntly from the deep fascia to expose anterior hip capsule and fat The Elia orthopaedic retractor was then placed beneath the TFL and against sartorius and medial soft tissues to protect and retract the soft tissues. A T-capsulotomy was then performed starting at the superior lateral acetabulum and moving distally to the intertrochanteric ridge. These capsular flaps were tagged with a No. 1 Ethibond and elevated from within. The capsular flaps were released to the shoulder of the lateral neck and to the lesser trochanter to give excellent visualization of the proximal femur. A neck osteotomy was performed using an oscillating saw based on preoperative templates. This cut started in the shoulder and of the lateral neck and exited medially. The saw was at all times directed medially to avoid injury to the greater trochanter. Gross traction was applied to the leg and the osteotomy opened. The femoral head was removed with a corkscrew, making sure to protect the TFL on its exit. Traction was released after head removal. This was measured on the back table to determine the starting reamer size. Portions of the rectus obscuring visualization were minimally elevated off the superior acetabulum. An anterior retractor was placed over the anterior wall between capsule and labrum and attached to the Gripper retraction system. The femur was rotated to 90 degrees and medial capsule was fully released until the lesser trochanter was palpable and visible; the femur was returned to 30 degrees. A posterior retractor was placed similarly between capsule and labrum. This provided excellent visualization. The contents of the cotyloid fossa were removed with electrocautery and the labrum was removed with a knife. There was a notable floor osteophyte. There was significant chondromalacia of the superior acetabulum. Acetabular reaming began with a 48mm reamer. This first reaming was directed anterior to posterior and medial to get down to the true floor. This was inspected and reamed until the true floor was reached. The anterior retractor was then released and entry and exit was provided by traction on the capsular flaps. I then reamed sequentially up to a 52mm reamer where good fit was obtained. The larger reamers were oriented based on anatomical reference of the anterior and lateral dan to ensure proper abduction and anteversion. Positioning and size was confirmed with the fluoroscopy. A 52mm Depuy [place] acetabular component was selected. The acetabulum was reamed around the periphery with the selected acetabular size to prevent a rim fit. The deep tissues were irrigated. The acetabular component was then impacted in a position of about 40-45 degrees of abduction and 15-20 degrees of anteversion, using the patient?s anatomy as the ultimate landmark. Fluoroscopy was used to confirm this. There was excellent property loss insurance claim adjuster of the acetabular component and the inserting handle was removed. The acetabular liner, Depuy [id number] polyethylene liner, was inserted and lined up with the tines of the acetabular component. There was no soft tissue interposition. The liner was then impacted into position and confirmed to be well-seated. A portion of the mirza-articular cocktail was then injected around the acetabulum into the capsule and periosteum. This cocktail consisted of 123mg of Ropivacaine, 0.25mg of Epinephrine, 0.04mg of Clonidine, and 15mg of Ketorolac, diluted to 50cc. The leg was rotated to 120 degrees. Any remaining medial capsule was released until the lesser trochanter was easily palpable. A retractor was placed medially. The lateral capsule was further released into the shoulder to allow access to the greater trochanter. A Mckeon retractor was placed over the greater trochanter which allowed the trochanter to flip in front of the capsule for excellent exposure. The leg was brought down into maximal extension and 20 degrees of adduction while ensuring there was no impingement on the acetabulum. Any remnant capsule within the trochanter was released. Piriformis and obturator externis were identified and protected. There was excellent access to the proximal femur. The lateral neck remnant was removed with a rongeur. A blunt canal probe was used to identify the canal and trajectory for later broaching. A box osteotome initiated the broach course. A small curved rasp and a curved curette were used to work laterally. Broaching then began with a size 8 Corail broach. This was inserted manually around the trochanter and into the canal before mallet blows. The broach was seated to a few millimeters below the cut level based on the neck cut and the preoperative template. Sequential broaching was continued with the ContraFect pneumatic broaching device until a tight fit was obtained with good rotational control of the femur. A trial standard neck was inserted along with a +5 trial head. The leg was brought out of extension and adduction and then reduced with traction and internal rotation. The leg was stable anteriorly in a position of 30 degrees of extension and 90 degrees of external rotation. Fluoroscopy was used to ensure there was no fracture and the stem was seated well. Leg lengths were checked with an AP pelvis and pelvic reference points. [employer] navigation system was used to confirm appropriate positioning and leg length and offset. This appropriately corrected the offset but over-corrected the leg length, so I advanced the broach 5mm to correct the leg length. Once content with the desired offset and leg lengths, the leg was brought back into extension, external rotation and adduction. The periosteum and surrounding tissue was injected with remaining portion of the mirza-articular cocktail. The proximal femur was irrigated as well as the deep tissues. The Depuy Corail standard collared stem, size 14, was then manually inserted into the proximal femur making sure to control rotation. It was then malleted into position with light blows, giving breaks to allow bone expansion and decrease risk of fracture. The selected Depuy Altrx Ceramic Head, size 36+5mm, was then placed onto the clean and dry trunnion and secured with impaction onto the tapered fit. The leg was brought back out of extension and adduction and reduced with traction and internal rotation. Stability was confirmed with no shuck at 90 degrees of external rotation and 30 degrees of extension. No impingement through range of motion arc. Final x-ray images were obtained with fluoroscopy to confirm adequate positioning and no intraoperative fracture. The deep tissues were thoroughly irrigated with Surgiphor, betadine solution. This was allowed to sit in the wound for 3 minutes before being thoroughly irrigated out with normal saline. The capsule was then reapproximated with the previously placed Ethibond sutures. The TFL fascia was finally closed with a No. 2 Stratafix, barbed suture. Deep tissues were then reapproximated with 0 Vicryl and a running 2-0 Vicryl. The skin was closed with a running 4-0 Monocryl in a subcuticular fashion. This was reinforced with skin glue. A Mepilex silver dressing was applied. At the end of the case, all counts were correct. Carrie was transferred to the hospital bed without difficulty and suffering no apparent complication. Carrie has a good prognosis. Physical therapy will start today and without restrictions, weight-bearing as tolerated. Aspirin 81mg BID will be used for DVT prophylaxis.
--- NOTE | 2022-06-08 14:46 | W.ANESPOSTOP ---
Postoperative Evaluation Date, Time and Location Date Performed: 06/08/22 Time Performed: 14:47 Patient Location: Day Surgery Unit Vital Signs Most Recent Imported Vital Signs: Most Recent Vital Signs Temp Pulse Resp BP Pulse Ox 36.5 C 58 L 18 145/86 H 100 06/08/22 14:16 06/08/22 14:16 06/08/22 14:16 06/08/22 14:16 06/08/22 14:16 Pain Score Most Recent Pain Score: Most Recent Pain Score Pain Level 0 06/08/22 14:16 Assessment Mental Status: Awake (Alert & Oriented to Patient Baseline) Airway and Respiratory Function: Patent airway with normal (patient baseline) respiratory exam Cardiovascular Function: Hemodynamically Stable Hydration Status: Adequately Hydrated Nausea & Vomiting: No Nausea or Vomiting Pain: Pt. Denies Any Pain Peripheral Nerve Block: Patient did not receive a nerve block
--- NOTE | 2022-06-08 17:41 | IN_ITS ---
Date of service: 06/08/22 Time of Service: 15:28 PT Notes Visit Reasons: R THR Physical Therapy Day Surgery Initial Evaluation Date: 06/08/2022 Referring Doctor: PARI Cummings PT Orders: PT CONSULT: Eval/treat WBAT on right LE with AD. Precautions: Patient Profile/Admitting Diagnosis: Ngozi is a 67-year-old female with primary unilateral osteoarthritis of the right hip and status post right total hip arthroplasty on postoperative day 0. PMHX: Medical History?(Updated 06/02/22 @ 14:36 by Alexandra Penn) History of breast cancer Left foot pain No injury, possible stress fracture? Possible gait change 2' rt knee instability? Left outer pain, quite sensitive! Osteoarthritis Knees Postmenopausal LMP age 46 s/p HRT stopped in 2009 Surgical History?(Updated 06/02/22 @ 14:35 by Alexandra Penn) Breast, Lumpectomy (~2010) R breast cancer Ganglion Cyst Excision R ankle Ligation of fallopian tube Open Carpal Tunnel release (~02/2006) Right carpal tunnel release Replacement of total knee joint (08/17/16) R knee, Dr George Veronica, Monie Kinney Right tibial plateau fx ORIF (03/03/10) Social History/Home Situation: Lives with in a private home with 4-5 steps to enter with a rail on one side. Bedroom is on the second floor with a flight of steps, rails on both sides. Equipment Owned/DME: Independent with all mobility ADLs prior to surgery. Subjective: Reports 3?4/10 pain in the right hip at rest and with weight bearing. Denies headache, chest pain, and lightheadedness throughout session. Objective: General Observation: Supine in bed. Mepilex Ag over surgical incision. TEDs to B legs. Mental Status: Alert and oriented x4 Pain: 3?4/10 in the right hip at rest and with weightbearing. ROM: Right Lower Extremity: Hip flexion WFL. Hip abduction WFL. Knee flexion WFL. Ankle dorsiflexion WFL. Ankle plantarflexion WFL. Left Lower Extremity: Hip flexion WFL. Hip abduction WFL. Knee flexion WFL. Ankle dorsiflexion WFL. Ankle plantarflexion WFL. Strength: Right Lower Extremity: Hip flexors 4/5. Hip abductors 4/5. Knee flexors 5/5. Knee extensors 4/5. Ankle dorsiflexors 5/5. Ankle plantarflexors 5/5. Left Lower Extremity:Hip flexors 5/5. Hip abductors 5/5. Knee flexors 5/5. Knee extensors 5/5. Ankle dorsiflexors 5/5. Ankle plantarflexors 5/5. Sensation: Intact as to pain and light touch in bilateral lower extremities Bed Mobility/Transfers: Supine to sit standby assist Sit to stand standby assist Stand to sit standby assist Bed to chair standby assist Gait: Negotiated 150 feet on level surface ambulation using front wheeled walker with step through gait pattern requiring only standby assist. Reported a mild increase in discomfort in the left hip after ambulation activity that subsided with rest. Level B. No SOB. Stairs: Up and down 6 x 4 inch steps and 4 x 6 inch steps while holding onto 1 rail with 1 hand and using a single-point cane with the other hand using step to gait pattern requiring only standby assist. Balance: Static Sitting: Normal Dynamic Sitting: Normal Static Standing: Fair Dynamic Standing: Fair Special Tests: Mobility Limitations Standardized Measure [facility] AM-PAC 6 clicks Basic Mobility Inpatient Short Form: Raw Score: 24 CMS Score: 0% deficit THERA EX: Supine gluteal sets x5 Supine heel slides x5 Supine ankle DF/PF Seated marches x5 LAQ x5 Informed Consent/Education: Patient instructed in purpose of PT consult. Packet containing MARGUERITE exercise protocol has been given to patient. Education and training on initial set of exercises that can be done at home have been completed with patient. Assessment: Carrie requires the use of a front wheeled walker for all mobility ADL performance in order to maximize independence and reduce fall risk. Patient presents with clinical signs and symptoms consistent with current/admitting diagnoses that have resulted to mobility limitations, gait instability, generalized weakness, and impairment of motor control as demonstrated by the following impairment level findings: 1. Decreased strength to right hip major muscle groups 2. Impaired standing balance Impairments are contributing to the following functional limitations: 1. Inability to safely ambulate without assistive device 2. Increase completion time for mobility ADL performance 3. Increased fall risk Patient is assessed as a [id number] moderate complexity based on the following: History: 67-year-old female with impairment level findings, functional limitations, and past medical history as indicated above Examination: Demonstrable impairment in strength, balance, and mobility level with underlying impairments and functional limitations as documented above Presentation: Evolving Decision Makin moderate complexity Goals: N/A. PT evaluation and 1-2 treatment sessions only for functional mobility training using recommended AD and for HEP instruction. Plan of Care/Treatment Plan: N/A. PT evaluation and 1-2 treatment session only for functional mobility training using recommended AD and for HEP instruction. DISCHARGE RECOMMENDATIONS: Home when medically cleared by orthopedic surgery. Recommend outpatient PT services in order to optimize functional mobility outcomes and facilitate return to independent community ambulation without an assistive device. TREATMENT CODE/TIME: 9716 2 x 20 minutes beginning at 15:28 PM. Thank you for the opportunity to participate in the care of this patient. Melvina Lin PT, DPT, CLT [facility] [place], [place]
== END 2022-06-08 15:56 | disposition home or self-care (01) ==
PROVIDERS: PCP Student in an Organized Health Care Education/Training Program; Visit Provider Student in an Organized Health Care Education/Training Program
PROC: (CPT 27130; principal; 2022-06-08 11:45)
DX: M16.11 Unilateral primary osteoarthritis, right hip (principal)
CPT/HCPCS: 20985; 27130; C1776; 97162; 73501; J0690; J1100; J2250; J2405

== ENCOUNTER 2022-06-23 10:53 | Outpatient (CLI) | payer MEDICARE, SELFPAY ==
--- NOTE | 2022-06-23 10:15 | DI.RAD_ITS ---
Exam(s) XR HIP RT COMPLETE AP PELVIS EXAM: XR HIP RT COMPLETE AP PELVIS INDICATION: 1ST POST OP S/P R MARGUERITE. COMPARISON: XA XR HIP RT IN OR from 06/08/2022 TECHNIQUE: 2D digital imaging was performed. Two views. FINDINGS: There has been no change in the alignment of the right hip prosthesis. There are no suspicious bony lucencies. The left hip shows minimal degenerative changes. DATA REPOSITORY: RADIATION DOSE DELIVERED:
== END 2022-06-23 10:54 | disposition home or self-care (01) ==
LOC: DIORS 10:54
PROVIDERS: PCP Student in an Organized Health Care Education/Training Program; Referring Provider Student in an Organized Health Care Education/Training Program; Visit Provider Physician Assistant
DX: Z96.641 Presence of right artificial hip joint (principal); Z47.1 Aftercare following joint replacement surgery
CPT/HCPCS: 73502

== ENCOUNTER 2022-07-11 04:41 | Outpatient (CLI) | payer MEDICARE, SELFPAY ==
[2022-07-11 11:17] LABS: Abs Immature Grans 0.02 10^3/uL (0.0-0.06); Absolute Basophil Count 0.02 10^3/uL (0.0-0.2); Absolute Lymphocyte Count 1.19 10^3/uL (1.2-3.4); Absolute Monocyte Count 0.68 10^3/uL (0.1-0.8); Absolute Neutrophil Count 3.43 10^3/uL (1.2-6.7); Basophils % 0.4; Eosinophils % 1.8; HCT 34.9 % (36.0-46.0); HGB 11.7 g/dL (11.2-15.7); Immature Grans % 0.4; Lymphocytes % 21.9; MCH 33.7 pg (27.0-33.0); MCHC 33.5 % (32.0-36.0); MCV 101 fL (80-95); MPV 8.9 fL (8.0-11.0); Monocytes % 12.5; Platelet Count 302 10^3/uL (130-400); RBC 3.47 10^6/uL (3.93-5.22); RDW-SD 48.1 fL; WBC 5.44 10^3/uL (4.4-10.8)
[2022-07-11 12:00] LABS: ALT 17 U/L (14-59); AST 20 U/L (15-37); Albumin 3.6 g/dL (3.4-5.0); Alkaline Phosphatase 137 U/L (46-116); Anion Gap 4.9 mmol/L (3-11); BUN 18 mg/dL (7-18); Bilirubin, Total 0.3 mg/dL (0.2-1.0); CO2 30.1 mmol/L (21.0-32.0); CREATININE 0.7 mg/dL (0.55-1.02); Calcium 9.3 mg/dL (8.5-10.1); Chloride 107 mmol/L (98-107); Estimated GFR 93.56 (mL/min/1.73m2); Glucose 86 mg/dL (74-106); Potassium 4.1 mmol/L (3.5-5.1); Sodium 142 mmol/L (136-145); Total Protein 7.2 g/dL (6.4-8.2)
[2022-07-11 12:42] LABS: Calculated LDL 122 mg/dL (<100); Cholesterol 209 mg/dL (<200); HDL Cholesterol 64 mg/dL (40-60); Triglyceride 119 mg/dL (<150)
== END 2022-07-11 04:42 | disposition home or self-care (01) ==
LOC: LBO 04:41
PROVIDERS: Student in an Organized Health Care Education/Training Program; PCP Student in an Organized Health Care Education/Training Program; Visit Provider Student in an Organized Health Care Education/Training Program
DX: M05.9 Rheumatoid arthritis with rheumatoid factor, unspecified (principal); D84.821 Immunodeficiency due to drugs; R53.83 Other fatigue; Z79.899 Other long term (current) drug therapy; M19.049 Primary osteoarthritis, unspecified hand
CPT/HCPCS: 36415; 80053; 80061; 84443; 85025

== ENCOUNTER → 2022-07-22 08:51 | Outpatient (BNVA) | payer MEDICARE, SELFPAY | PROVIDERS: PCP Student in an Organized Health Care Education/Training Program; Referring Provider Student in an Organized Health Care Education/Training Program; Visit Provider Student in an Organized Health Care Education/Training Program | DX: Z47.1 Aftercare following joint replacement surgery (principal); Z96.641 Presence of right artificial hip joint ==

== ENCOUNTER 2022-08-30 10:40 | Outpatient (CLI) | payer MEDICARE, SELFPAY ==
--- NOTE | 2022-08-30 10:15 | DI.RAD_ITS ---
Exam(s) XR KNEE RT 4V AP,LAT,TAMARA,PAT EXAM: XR KNEE RT 4V AP,LAT,TAMARA,PAT CLINICAL HISTORY: RIGHT KNEE PAIN. TECHNIQUE: 2D digital imaging was performed. Four images were obtained. AP, merchant's, PA tunnel a nd lateral views were obtained. COMPARISON: CR XR KNEE RT 3V AP,LAT,TAMARA from 10/01/2021 FINDINGS: BONES: There are stable post operative changes present. No fracture or dislocation. JOINTS: The orthopedic hardware is in good position. No evidence of hardware loosening. There is a moderate joint effusion. SOFT TISSUE: Normal. IMPRESSION: 1. Stable postoperative changes. 2. Moderate joint effusion. DATA REPOSITORY: RADIATION DOSE DELIVERED:
--- NOTE | 2022-08-30 10:15 | DI.RAD_ITS ---
Exam(s) XR ANKLE RT COMPLETE EXAM: XR ANKLE RT COMPLETE CLINICAL HISTORY: RIGHT ANKLE PAIN. TECHNIQUE: 2D digital imaging was performed of the right ankle. Three images were obtained. AP, la teral and oblique views were obtained. COMPARISON: CR XR FOOT RT LIMITED from 12/20/2021 FINDINGS: BONES: No acute fracture is present. No bony destructive lesion is seen. There is an enthesophyte at the posterior calcaneus. JOINTS: The ankle mortise is normally aligned. SOFT TISSUE: Normal. IMPRESSION: Unremarkable radiographs of the right ankle. DATA REPOSITORY: RADIATION DOSE DELIVERED:
== END 2022-08-30 10:41 | disposition home or self-care (01) ==
LOC: DIORS 10:40
PROVIDERS: PCP Student in an Organized Health Care Education/Training Program; Referring Provider Student in an Organized Health Care Education/Training Program; Visit Provider Physician Assistant
DX: M76.71 Peroneal tendinitis, right leg; M70.51 Other bursitis of knee, right knee
CPT/HCPCS: 20610; 73564; 73610; J1030

== ENCOUNTER → 2022-10-10 09:13 | Outpatient (BNVA) | payer MEDICARE, SELFPAY | PROVIDERS: PCP Student in an Organized Health Care Education/Training Program; Referring Provider Student in an Organized Health Care Education/Training Program; Visit Provider Student in an Organized Health Care Education/Training Program | DX: M76.71 Peroneal tendinitis, right leg (principal); M70.51 Other bursitis of knee, right knee; Z96.641 Presence of right artificial hip joint | CPT/HCPCS: 99213 ==

== ENCOUNTER 2022-11-02 17:35 | Emergency (ER) | payer MEDICARE, SELFPAY ==
[2022-11-02 17:44] VITALS: BP 109/66; PULSE 64; RESP 25; TEMP 37.1; O2SAT 99
--- NOTE | 2022-11-02 18:00 | DI.RAD_ITS ---
Exam(s) XR FOREARM RT EXAM: XR FOREARM RT CLINICAL HISTORY: crush injury. TECHNIQUE: 2D digital imaging was performed. COMPARISON: No exams were available for comparison FINDINGS: Two views. There is a nondisplaced oblique fracture of the distal ulna. Ulnar styloid is intact. There are no fractures of the radius. No fractures more proximally in the forearm bones. IMPRESSION: There is no oblique nondisplaced fracture of the distal ulna. DATA REPOSITORY: RADIATION DOSE DELIVERED:
--- NOTE | 2022-11-02 18:00 | DI.RAD_ITS ---
Exam(s) XR WRIST RT COMPLETE EXAM: XR WRIST RT COMPLETE CLINICAL HISTORY: crush injury. TECHNIQUE: 2D digital imaging was performed. COMPARISON: No exams were available for comparison FINDINGS: 3 views There is no oblique nondisplaced fracture of the distal ulna diaphysis and metaphysis. No fracture o f the distal radius evident. No significant ulnar variance. Other carpal row bones appear unremarka ble. IMPRESSION: Oblique nondisplaced fracture of the distal ulna. DATA REPOSITORY: RADIATION DOSE DELIVERED:
[2022-11-02] MEDS: Ketorolac 10 MG TAB PO (18:16)
--- NOTE | 2022-11-02 18:20 | W.ED.GENAD ---
Discharge Plan Disposition Patient Disposition: Home Discharge Details Chief Complaint: Orthopedic Clinical Impression: Distal end of ulna fracture, closed Primary Care Provider: Haylee Campoverde ED Provider: Norbert Kelly Home Meds and New Rx's Prescriptions: No Action alendronate 70 mg tablet 70 mg PO QWEEK Qty: 14 3RF Patient Comments: hasnt started Rx Instructions: Start Osteoporosis Tx mupirocin 2 % ointment 1 applic topical TID Qty: 22 1RF Rx Instructions: Trial for left nostril methotrexate sodium 2.5 mg tablet 25 mg PO weekly Qty: 8 Rx Instructions: Source: women's soccer coach; increased to 25mg weekly (11/25/20). EO trazodone 50 mg tablet 50 mg PO HS Qty: 90 3RF valacyclovir 500 mg tablet 500 mg PO DAILY Qty: 90 3RF Rx Instructions: Suppressive Therapy fluoxetine 20 mg tablet 20 mg PO DAILY Qty: 90 3RF folic acid 1 mg tablet 3 mg PO DAILY Qty: 90 3RF levothyroxine 50 mcg tablet 50 mcg PO DAILY Qty: 90 3RF Rx Instructions: Take in the morning on an empty stomach, at least 30-60 minutes before food. multivitamin Tablet 1 tab DAILY calcium carbonate-vitamin D3 [Calcium with Vitamin D] 600 mg-10 mcg (400 unit) Tablet 1 tab PO acetaminophen 500 mg tablet 1,000 mg PO TID Qty: 90 3RF Discharge Instructions Instructions: Arm Fracture in Adults (ED) Additional Instructions: Please follow-up with orthopedic surgery within the next 1 to 2 weeks. Please return to the emergency department for any worsening symptoms Medical Decision Making 67-year-old female presents after crush injury to right wrist, arm caught between kayak and car, early ecchymosis and swelling to volar aspect of distal wrist, prior abrasion/laceration to dorsal aspect of distal third of right forearm not sustained from this injury, no skin tenting no evidence of open fracture however high clinical suspicion for distal radius and/or ulnar fracture. Screening x-ray, Toradol, close reassessment likely splinting and orthopedic follow-up. 19: 29 evidence of oblique ulnar fracture. Patient placed in sugar-tong splint. Will be given orthopedic follow-up. Home care instructions return precautions given HPI General Date/Time Provider Initiated Documentation: 11/02/22 17:38. HPI Narrative: 67-year-old female presents after sustaining right wrist injury, was loading a kayak onto the roof of her car when the kayak crushed her wrist between the car and the kayak, pain and swelling early ecchymosis to the area, patient already had a small superficial laceration to dorsal aspect of wrist, not sustained during this most recent injury Related Data Home Medications Medication Instructions Recorded Confirmed methotrexate sodium 2.5 mg tablet 25 mg PO weekly #8 tab-caps 06/19/20 10/11/22 fluoxetine 20 mg tablet 20 mg PO DAILY #90 tabs 03/30/22 10/11/22 folic acid 1 mg tablet 3 mg PO DAILY methotrexate rx for 03/30/22 10/11/22 RA. #90 tab-caps levothyroxine 50 mcg tablet 50 mcg PO DAILY #90 tab-caps 03/30/22 10/11/22 trazodone 50 mg tablet 50 mg PO HS #90 tab-caps 03/30/22 10/11/22 valacyclovir 500 mg tablet 500 mg PO DAILY HSV Suppression Tx 03/30/22 10/11/22 #90 tabs alendronate 70 mg tablet 70 mg PO QWEEK #14 tabs 05/05/22 10/11/22 mupirocin 2 % topical ointment 1 applic topical TID #22 grams 05/05/22 10/11/22 acetaminophen 500 mg tablet 1,000 mg PO TID #90 tabs 06/08/22 10/11/22 calcium carbonate 600 mg-vitamin 1 tab PO 06/08/22 10/11/22 D3 10 mcg (400 unit) tablet (Calcium with Vitamin D) multivitamin 1 tab DAILY 06/08/22 10/11/22 Previous Rx's Medication Instructions Recorded fluoxetine 20 mg tablet 20 mg PO DAILY #90 tabs 03/30/22 folic acid 1 mg tablet 3 mg PO DAILY methotrexate rx for 03/30/22 RA. #90 tab-caps levothyroxine 50 mcg tablet 50 mcg PO DAILY #90 tab-caps 03/30/22 trazodone 50 mg tablet 50 mg PO HS #90 tab-caps 03/30/22 valacyclovir 500 mg tablet 500 mg PO DAILY HSV Suppression Tx 03/30/22 #90 tabs alendronate 70 mg tablet 70 mg PO QWEEK #14 tabs 05/05/22 mupirocin 2 % topical ointment 1 applic topical TID #22 grams 05/05/22 acetaminophen 500 mg tablet 1,000 mg PO TID #90 tabs 06/08/22 Allergies Allergy/AdvReac Type Severity Reaction Status Date / Time No Known Drug Allergies Allergy Verified 10/10/22 09:25 General Stated Complaint: Orthopedic PERRY: 3 Review of Systems Narrative: Review of Systems Constitutional: negative Eyes: negative ENT: negative Cardiovascular: negative Respiratory: negative Gastrointestinal: negative : negative Musculoskeletal: Wrist pain Skin: negative Neurologic: negative Psych: negative PFSH All Active Problems (Updated 11/02/22 @ 19:33 by Norbert Kelly MD) Distal end of ulna fracture, closed (Acute) COVID (Acute ~09/27/22) 10/05/22-call from her with return of sx's. (?rebound covid) Peroneal tendonitis of right lower extremity (Acute) Right ankle pain (Acute) History of total right hip replacement (Acute 06/08/22) Advance directive in chart (Acute 05/18/16) Pt reports on-file with [place] registry Anxiety (Acute) Fluox started over this past year, 2018. 10-->20mg, doing well. Helping lessen anx/extremes. Mild panic, worry episodes occur, but a alk or cognitive review helps. Diverticulosis of sigmoid colon (Acute 10/07/16) colonoscopy 10/07/16; internal hemorrhoids noted; repeat colo 10 yrs recommended. [place] 10[place]07/26 [place] [facility]. Hypothyroidism (acquired) (Acute) Insomnia (Acute) Malignant neoplasm of unspecified site of right female breast (Acute 04/24/15) lumpectomy 03/2010, radiation, tamoxifen. Br Cancer Screening DUE 05/08/20 [place] [facility] [place]. Osteoarthritis of both knees (Acute) [facility] [place], joint injections Osteopenia (Acute 12/26/13) Femoral neck T-score = -1.0 --> WHO FRAX = 16% major osteoporotic & 1.1% hip fx --> no bisphosphonates at this time, recommended Ca/Vit d, recheck 5 years ((Osteopenia per 2011 Dexa)) Rheumatoid arthritis (Acute) Dr. Payton q4mos, labs q3mos --> referral to Dr. Chris 04/24/2015 to establish care closer. Affects hands mostly Screening for hyperlipidemia (Acute 05/20/16) 05/2016 labwork: 10- year ASCVD risk = ~3.3% Hx of breast lump removal (Chronic) With significant malformation post radiation .. puckering & tissue/texture changes. 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 shortened with quick use of Rx, but considering proph. Adjustment disorder (Chronic) As can be expected, retiring .. Fatigue (Acute) Unstable knee (Acute) Trigger finger, left ring finger (Acute) Beocmign worse, painful.. Trigger thumb, right thumb (Acute) Androgenetic alopecia (Acute) Angular cheilitis (Acute) Seborrheic keratoses (Acute) 04/04/22- [facility] [place] derm note; actinic keratosis,lentigo, cherrry angioma, multiple benign nevi, HSV infection (Acute) S/P biopsy (Acute) 04/04/22- skin shave biopsy, right dorsal hand. [facility] Osteoporosis (Chronic) Internal nasal lesion (Acute) Hx papule, outer nare with palpable nod, but no evident abscess/papule. Inner nare/septum ulcerous lesion. Pes anserinus bursitis of right knee (Acute) 40 mg Depo-Medrol injection: 08/30/2022; 05/06/2022 Depression (Chronic) Migraines (Chronic) Medical History (Updated 11/02/22 @ 19:33 by Norbert Kelly MD) History of breast cancer Hx of headache Left foot pain No injury, possible stress fracture? Possible gait change 2' rt knee instability? Left outer pain, quite sensitive! Osteoarthritis Knees Postmenopausal LMP age 46 s/p HRT stopped in 2009 Surgical History (Updated 06/23/22 @ 10:20 by Sheri Ferrara RN) Breast, Lumpectomy (~2010) R breast cancer Ganglion Cyst Excision R ankle Hx of colonoscopy Ligation of fallopian tube Open Carpal Tunnel release (~02/2006) Right carpal tunnel release Replacement of total knee joint (08/17/16) R knee, Monie Gamino Right tibial plateau fx ORIF (03/03/10) Family History Father Substance abuse Alcoholism Heart disease Myocardial infarction Sister Personal history of malignant neoplasm Thyroid Cancer Sister , Lung at age 62. Personal history of malignant neoplasm Lung (smoker) & Cervical Cancer Brother Heart disease Myocardial infarction CABG Mother Mental disorder ?borderline personality disorder Sister SLE (systemic lupus erythematosus) Sister Mental disorder Unknown, likely bipolar Social History Smoking/Tobacco Use Status: Former Tobacco Use Quit Date: 03/13/84 Smoking risk assessment performed?: Yes Alcohol Intake: current Alcohol Intake frequency: a few times a week Alcohol type: wine Drug use: Never Substance use type: does not use Household members: spouse Housing: house Number of Children: 3 number of grandchildren: 1 Communication Needs: Corrective Lenses Education Level: master's degree Do you need help understanding health information?: Never 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 Sexually active: No Current gender identity: female What type of physical activity do you participate in: walking Duration: 30-45 minutes/day Frequency: 5-6 times per week Seatbelt use: always Drive intox or ride w/intox crew car driver: No Working smoke detector in home: Yes Fire extinguisher in home: Yes Carbon monox detector in home: Yes Do you feel safe at home: Yes Do you feel safe in your relationship?: Yes Exam Narrative Exam Narrative: Physical Examination General: alert, awake, cooperative, resting comfortably, no acute distress HEENT: normocephalic, atraumatic; PERRL, EOM intact, conjunctiva normal; no nasal discharge; moist mucous membranes, oral and pharyngeal mucosa normal, tolerating secretions Neck: supple, trachea midline; full ROM Chest: normal to inspection Skin: 2 cm superficial linear abrasion/laceration to skin overlying distal third of dorsal aspect of right forearm subacute in nature Neuro: AAOx3, normal speech, moving all extremities Extremities: Pain swelling and early ecchymosis to distal aspect of right wrist mainly volar region, no discrete angulation, no skin tenting, median radial and ulnar nerve sensory distribution intact, strong radial pulse flexion extension fingers intact range of motion thumb intact Psych: Appropriate mood and affect Course Vital Signs Vital signs: Vital Signs Temperature 37.1 C 11/02/22 17:44 Pulse 64 11/02/22 17:44 Respiratory Rate 25 H 11/02/22 17:44 Blood Pressure 109/66 11/02/22 17:44 Pulse Oximetry 99 11/02/22 17:44 Temperature 37.1 C 11/02/22 17:44 Temperature Source Temporal Artery Scan 11/02/22 17:44 Pulse 64 11/02/22 17:44 Respiratory Rate 25 H 11/02/22 17:44 Respiratory Effort Normal, Non-Labored 11/02/22 17:47 Blood Pressure 109/66 11/02/22 17:44 Blood Pressure Position Sitting 11/02/22 17:44 Pulse Oximetry 99 11/02/22 17:44 Oxygen Delivery Method Room Air 11/02/22 17:44 Oxygen Flow Rate 0 11/02/22 17:44 Pain Level 9 11/02/22 17:47 Procedures Orthopedic Splinting/Casting Injury #1: Side: right Upper Extremity Injury Location: forearm Upper Extremity Immobilizer: sugartong splint PAWSS Have you Been Recently Intoxicated or Drunk Within the Last 30 days?: No Have you Ever Experienced Previous Episodes of Alcohol Withdrawal?: No Have you ever Experienced Withdrawal Seizures?: No Have you ever Experienced Delirium Tremens(DT)s?: No Have you ever undergone Alcohol Rehabilitation Treatment (i.e, inpt ot outpatient treatment programs)?: No Have you ever Experienced Blackouts?: No Have you ever Combined Alcohol with other Downers within the last 90 days?: No Have you ever Combined Alcohol with any other Substance of Abuse during the last 90 days?: No Positive Blood Alcohol level on Presentation? [PCS.BAL]: No Evidence of Increased Autonomic Activity (i.e. HR>120, tremor, sweating, agitation, nausea)?: No Result: 0
--- NOTE | 2022-11-02 19:05 | DI.VRAD_ITS ---
PROCEDURE INFORMATION: Exam: XR Right Wrist Exam date and time: 11/02/2022 18:53 Age: 67 years old Clinical indication: Injury or trauma; Fall; Crushing; Wrist; Right TECHNIQUE: Imaging protocol: Radiologic exam of the right wrist. Views: 3 or more views. COMPARISON: No relevant prior studies available. FINDINGS: Bones/joints: Acute oblique fracture of the distal ulnar diaphysis without significant angulation. Soft tissues: Soft tissue swelling surrounding the fracture site. IMPRESSION: Acute oblique fracture of the distal ulnar diaphysis without significant angulation. Dictated and Authenticated by: Cookie Salcedo MD. Ordering:RUBEN Toussaint MD
--- NOTE | 2022-11-02 19:06 | DI.VRAD_ITS ---
PROCEDURE INFORMATION: Exam: XR Right Forearm Exam date and time: 11/02/2022 18:56 Age: 67 years old Clinical indication: Injury or trauma; Fall; Crushing; Arm, lower; Right TECHNIQUE: Imaging protocol: Radiologic exam of the right forearm. Views: 2 views. COMPARISON: CR XR WRIST RT COMPLETE 11/02/2022 18:53 FINDINGS: Bones/joints: Acute distal ulnar fractures; please see wrist films. The remainder of the ulna and the radius are intact. Soft tissues: Soft tissue swelling surrounding the fracture site. IMPRESSION: Acute distal ulnar fractures; please see wrist films. The remainder of the ulna and the radius are intact. Dictated and Authenticated by: Cookie Salcedo MD. Ordering:RUBEN Toussaint MD
== END 2022-11-02 19:42 | disposition home or self-care (01) ==
PROVIDERS: Emergency Provider Emergency Medicine; PCP Student in an Organized Health Care Education/Training Program
DX: S67.31XA Crushing injury of right wrist, initial encounter (principal); S52.691A Other fracture of lower end of right ulna, initial encounter for closed fracture; W23.0XXA Caught, crushed, jammed, or pinched between moving objects, initial encounter; Y93.89 Activity, other specified; Y92.89 Other specified places as the place of occurrence of the external cause; Y99.8 Other external cause status
CPT/HCPCS: 29125; 99283; 73090; 73110

== ENCOUNTER 2022-11-17 13:57 | Outpatient (CLI) | payer MEDICARE, SELFPAY ==
--- NOTE | 2022-11-17 13:27 | DI.RAD_ITS ---
Exam(s) XR WRIST RT COMPLETE EXAM: XR WRIST RT COMPLETE CLINICAL HISTORY: f/u L DISTAL ULNA. TECHNIQUE: 2D digital imaging was performed. COMPARISON: CR,XR XR WRIST RT COMPLETE from 11/02/2022 FINDINGS: 3 views Again noted is the oblique fracture in the distal ulna. There is some further widening of the fractu re lines at this level evident. No new fractures evident. No significant ulnar variance. IMPRESSION: Widening of the distal ulnar fracture lines evident, when compared to 11/02/2022. DATA REPOSITORY: RADIATION DOSE DELIVERED:
== END 2022-11-17 13:58 | disposition home or self-care (01) ==
LOC: DIORS 13:57
PROVIDERS: PCP Student in an Organized Health Care Education/Training Program; Referring Provider Student in an Organized Health Care Education/Training Program
DX: S52.691A Other fracture of lower end of right ulna, initial encounter for closed fracture; S67.31XA Crushing injury of right wrist, initial encounter; W23.0XXA Caught, crushed, jammed, or pinched between moving objects, initial encounter
CPT/HCPCS: 99214; 73110

== ENCOUNTER 2022-11-23 10:13 | Day surgery (SDC) | payer MEDICARE, SELFPAY ==
[2022-11-23] VITALS (13 sets, daily range): BP systolic 128–175; BP diastolic 58–99; PULSE 49–57; RESP 14–20; TEMP 36.2–36.6; O2SAT 97–100; BMI 22.4
[2022-11-23] MEDS: Lactated Ringers 1,000 ML 80 ML IV (10:58)
--- NOTE | 2022-11-23 11:17 | W.ANESPRE ---
General Info Date of Service Date Performed: 11/23/22 Height: 5 ft 9 in Weight: 68.7 kg Body Mass Index (BMI): 22.4 Surgical Procedure: Operation Date: 11/23/22 13:25 Proposed Procedure Side Surgeon p ORIF Distal Ulna Right Jonathan Encarnacion MD Meds Allergies and Home Medications Allergies Allergy/AdvReac Type Severity Reaction Status Date / Time No Known Drug Allergies Allergy Verified 11/23/22 10:36 Home Medication Medication Instructions Recorded methotrexate sodium 2.5 mg tablet 25 mg PO weekly #8 tab-caps 06/19/20 fluoxetine 20 mg tablet 20 mg PO DAILY #90 tabs 03/30/22 folic acid 1 mg tablet 3 mg PO DAILY methotrexate rx for 03/30/22 RA. #90 tab-caps levothyroxine 50 mcg tablet 50 mcg PO DAILY #90 tab-caps 03/30/22 trazodone 50 mg tablet 50 mg PO HS #90 tab-caps 03/30/22 valacyclovir 500 mg tablet 500 mg PO DAILY HSV Suppression Tx 03/30/22 #90 tabs alendronate 70 mg tablet 70 mg PO QWEEK #14 tabs 05/05/22 mupirocin 2 % topical ointment 1 applic topical TID #22 grams 05/05/22 acetaminophen 500 mg tablet 1,000 mg PO TID #90 tabs 06/08/22 calcium carbonate 600 mg-vitamin 1 tab PO DAILY 06/08/22 D3 10 mcg (400 unit) tablet (Calcium with Vitamin D) multivitamin 1 tab DAILY 06/08/22 Current Visit Medications: Current Medications Generic Name Dose Route Start Last Admin Trade Name Marah PRN Reason Stop Dose Admin Ringer's Solution 1,000 mls @ 80 mls/hr 11/23/22 06:00 11/23/22 10:58 IV 12/22/22 23:59 80 mls/hr INFUSION ERIC Administration Cefazolin Sodium/Dextrose 2 gm in 50 mls @ 100 mls/hr 11/23/22 06:00 Ancef Duplex IVPB 11/23/22 16:00 PREOP ERIC IV Miscellaneous Supplies 1 each 11/23/22 06:00 Iv Access IV 12/22/22 23:59 DIRECTED ERIC Sodium Chloride 0 ml 11/23/22 06:00 Normal Saline Flush 10 Ml Syr IV 12/22/22 23:59 PRN PRN Sodium Chloride 0 ml 11/23/22 06:00 Normal Saline 10 Ml Vial IJ 12/22/22 23:59 DIRECTED PRN Sterile Water 0 ml 11/23/22 06:00 Water,Injection,Sterile 10 Ml Vial IJ 12/22/22 23:59 DIRECTED PRN PFSH Active Problems Active Problems: Problem Status Onset Code Advance directive in chart 05/18/16 Z78.9 Anxiety F41.9 Diverticulosis of sigmoid colon 10/07/16 K57.30 Hypothyroidism (acquired) E03.9 Insomnia G47.00 Malignant neoplasm of unspecified site of right female breast 04/24/15 C50.911 Osteoarthritis of both knees M17.0 Osteopenia 12/26/13 M85.80 Rheumatoid arthritis M06.9 Screening for hyperlipidemia 05/20/16 Z13.220 Hx of breast lump removal Z98.890 Thyroid disease E07.9 Hearing loss sensory, bilateral H90.3 Abnormal auditory perception of right ear H93.291 Trochanteric bursitis, right hip M70.61 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 Hx of herpes simplex infection Z86.19 Adjustment disorder F43.20 Fatigue R53.83 Unstable knee M25.369 Trigger finger, left ring finger M65.342 Trigger thumb, right thumb M65.311 Androgenetic alopecia L64.9 Angular cheilitis K13.0 Seborrheic keratoses L82.1 HSV infection B00.9 S/P biopsy Z98.890 Osteoporosis M81.0 Internal nasal lesion J34.89 Pes anserinus bursitis of right knee M70.51 Depression F32.A Migraines G43.909 History of total right hip replacement 06/08/22 Z96.641 Right ankle pain M25.571 Peroneal tendonitis of right lower extremity M76.71 COVID ~09/27/22 U07.1 Right distal ulnar fracture 11/02/22 S52.601A Medical History Medical History History of breast cancer Hx of headache Left foot pain No injury, possible stress fracture? Possible gait change 2' rt knee instability? Left outer pain, quite sensitive! Osteoarthritis Knees Postmenopausal LMP age 46 s/p HRT stopped in 2009 Surgical History Surgical History Breast, Lumpectomy (~2010) R breast cancer Ganglion Cyst Excision R ankle History of right hip replacement Hx of colonoscopy Ligation of fallopian tube Open Carpal Tunnel release (~02/2006) Right carpal tunnel release Replacement of total knee joint (08/17/16) R knee, Dr George Veronica, Monie Kinney Day Right tibial plateau fx ORIF (03/03/10) Tobacco Smoking/Tobacco Use Status: Former Tobacco Use Alcohol Alcohol Intake: current Alcohol intake frequency: a few times a week Alcohol type: wine Substance Use Substance use: Never Substance use type: does not use Vital Signs and Lab Results Vital Signs Most Recent Vital Signs in EMR: Most Recent Vital Signs Temp Pulse Resp BP Pulse Ox 36.2 C L 57 L 16 142/82 H 98 11/23/22 10:30 11/23/22 10:30 11/23/22 10:30 11/23/22 10:30 11/23/22 10:30 Lab Results Blood Type / Crossmatch: No Data to Display Complete Blood Count: No Data to Display Complete Metabolic Panel: No Data to Display Liver Function Panel: No Data to Display Coagulation Panel: No Data to Display Cardiac Panel: No Data to Display Arterial Blood Gas: No Data to Display Venous Blood Gas: No Data to Display Pancreas Panel: No Data to Display Thyroid Panel: No Data to Display Infectious Disease: No Data to Display Blood Cultures: No Data to Display Toxicology Panel: No Data to Display Anesthesia Assessment and Plan Anesthesia History Personal History: No History of Anesthesia Complications Family History: No Family History of Anesthesia Complications Exercise Tolerance Exercise Tolerance: Metabolic Equivalents>4 Cardiac & Pulmonary Exam Cardiac Exam: Normal S1/S2 Heart Sounds Pulmonary Exam: Clear Bilateral Breath Sounds Implantable Cardiac Device Does patient have a Pacemaker or an ICD?: No Airway Exam Known Difficult Airway: No Mallampati Class: 1 Mouth Opening: Normal (> 3cm) Thyromental Distance: Greater than 3 cm Neck Range of Motion: Full ROM Neck Circumference: Normal Teeth Condition: Normal Dentition ASA Classification ASA Score: ASA 2 Emergency Case?: No NPO Status NPO Status: NPO Clears >2 hours, Solids >8 hours Anesthesia Plan Resuscitation Status: Full Code Anesthesia Technique: General Anesthesia Airway Planned: LMA Monitors Used: Standard Monitors Preoperative Comments:: 67 yo female for ulnar ORIF. Sig PMHx: breast CA (lumpectomy, radiation), rheumatoid (methotrexate, just started golimumab), hypothyroid (no replacment), anxiety/depression (fluoxetine), former smoker, occ EtOH. Previous Anes: - MARGUERITE, spinal, prop, no issues.
--- NOTE | 2022-11-23 12:12 | PDOC.DSDIS_ITS ---
Date of service: 11/23/22 Time of Service: 12:12 Discharge Plan Disposition Patient Disposition: Home Condition: Good Discharge Details Reason For Visit: ORIF R distal ulna Attending Provider: Jonathan Encarnacion Primary Care Provider: Haylee Campoverde Home Meds and New Rx's Prescriptions: New acetaminophen 500 mg tablet 1,000 mg PO TID Qty: 90 0RF oxycodone 5 mg tablet 5 mg PO Q8H MDD 15mg PRN (Reason: pain) Qty: 10 0RF Continued alendronate 70 mg tablet 70 mg PO QWEEK Qty: 14 3RF Patient Comments: hasnt started Rx Instructions: Start Osteoporosis Tx mupirocin 2 % ointment 1 applic topical TID Qty: 22 1RF Rx Instructions: Trial for left nostril methotrexate sodium 2.5 mg tablet 25 mg PO weekly Qty: 8 Rx Instructions: Source: expanded function dental assistant; increased to 25mg weekly (11/25/20). EO trazodone 50 mg tablet 50 mg PO HS Qty: 90 3RF valacyclovir 500 mg tablet 500 mg PO DAILY Qty: 90 3RF Rx Instructions: Suppressive Therapy fluoxetine 20 mg tablet 20 mg PO DAILY Qty: 90 3RF folic acid 1 mg tablet 3 mg PO DAILY Qty: 90 3RF levothyroxine 50 mcg tablet 50 mcg PO DAILY Qty: 90 3RF Rx Instructions: Take in the morning on an empty stomach, at least 30-60 minutes before food. multivitamin Tablet 1 tab DAILY calcium carbonate-vitamin D3 [Calcium with Vitamin D] 600 mg-10 mcg (400 unit) Tablet 1 tab PO DAILY Discontinued acetaminophen 500 mg tablet 1,000 mg PO TID Qty: 90 3RF Discharge Instructions Additional Instructions: Wrist Fracture Fixation Discharge Instructions Activity: You should keep the hand/wrist elevated as much as possible for the first few days. You may use the other fingers as tolerated but avoid trying to do too much too soon. You may perform light activities with the splint in place. Dressing/Cast: Your splint should stay in place at all times. Do NOT get it wet. You may loosen the GARETH wrap if you feel it is too tight and then rewrap more loosely. Medications: - You should take Tylenol for baseline pain control. - You have been prescribed a stronger pain medication, Oxycodone, for breakthrough pain. - You may apply ice over the wrist, just double bag so it doesn't get wet. Follow-up: 10-14 days Stand Alone Forms: Anesthesia Discharge Inst[facility] Elayne Hu ([facility]) Referrals: Jonathan Encarnacion MD [ [facility] STAFF PHYSICIAN] - 12/05/22 3:00 pm Equipment/Supplies: Splint Activity:: Elevate Remove Dressings/Wound Care:: Do Not Remove Shower/Bathe:: Cover Diet:: As Tolerated Discharge Orders Discharge Orders: Discharge Order (Routine); Ordered 11/23/22 Ordered By: Chet Brower Discharge Data Discharge Date/Time-TO BE ENTERED AT DEPARTURE: 11/23/22 17:52 DS: Diagnosis Discharge Diagnosis (1) Right distal ulnar fracture: Status: Acute
[2022-11-23] MEDS: ceFAZolin 2 GM/50 ML BAG IVPB (12:25)
[2022-11-23] MEDS: Bupivacaine 0.25% Pres-Free 30 ML VIAL (12:58)
[2022-11-23] MEDS: EPINEPHrine 30 MG/30 ML VIAL (12:58)
--- NOTE | 2022-11-23 14:23 | DI.RAD_ITS ---
Exam(s) XR WRIST RT LIMITED EXAM: XR WRIST RT LIMITED CLINICAL HISTORY: right distal ulna fracture. TECHNIQUE: 2D and realtime digital imaging was performed. COMPARISON: CR XR WRIST RT COMPLETE from 11/17/2022 FINDINGS: Fluoroscopy was provided in the OR. Hard copy images show placement of a fixation plate along the di stal ulna for fracture fixation. The alignment appears satisfactory. Please see procedure note for details. Fluoro time: 0.42seconds RADIATION DOSE DELIVERED: suresh Pritchett=0.23 mGy
[2022-11-23] MEDS: fentaNYL 100 MCG/2 ML VIAL IVP (14:29)
--- NOTE | 2022-11-23 14:46 | W.ANESPOSTOP ---
Postoperative Evaluation Date, Time and Location Date Performed: 11/23/22 Time Performed: 14:46 Patient Location: PACU Vital Signs Most Recent Imported Vital Signs: Most Recent Vital Signs Temp Pulse Resp BP Pulse Ox 36.2 C L 54 L 16 139/82 98 11/23/22 14:20 11/23/22 14:20 11/23/22 14:20 11/23/22 14:20 11/23/22 14:20 Pain Score Most Recent Pain Score: Most Recent Pain Score Pain Level 8 11/23/22 14:20 Assessment Mental Status: Awake (Alert & Oriented to Patient Baseline) Airway and Respiratory Function: Patent airway with normal (patient baseline) respiratory exam Cardiovascular Function: Hemodynamically Stable Hydration Status: Adequately Hydrated Nausea & Vomiting: No Nausea or Vomiting Pain: Pain is tolerable per patient Peripheral Nerve Block: Patient did not receive a nerve block
--- NOTE | 2022-11-23 15:36 | W.ANESNERVE ---
Nerve Block Single Injection Procedure Date and Time Date Performed: 11/23/22 Procedure Start: 15:28 Location Where Procedure Performed Procedure Location: PACU Reason Performed: Postoperative Analgesia Requesting Provider: Jonathan Encarnacion Timeout Performed Timeout Performed: Yes Monitoring Used ECG, Blood Pressure and SpO2 Sterility Sterility: Hand Hygiene, Surgical Cap, Surgical Mask, Sterile Gloves and Chlorhexidine Sedation Given During Procedure Sedation Given (Indicate Dose Given): No Sedation given Patient Mental Status Patient Mental Status: Awake Nerve Block 1st Nerve Block: Laterality: Right Block Type: Axillary Ultrasound Image Saved?: Yes Needle / Catheter Used: 100mm SonoPlex II Local Anesthetic Bolus (Indicate Dose Given): Lidocaine used for local infiltration of skin and Bupivacaine 0.25% Dose:: 20 mL Additives (Indicate Dose Given): Precedex Dose:: 40 mcg Ultrasound: Sterile probe cover and gel used Nerve Stimulator: Supplement to Ultrasound use and No twitch or parasthesia noted < 0.5 mA Paresthesia: None Procedure Tolerated: No Complications Procedure Outcome: Successful Procedure Comment: On being more awake she is endorsing significant discomfort. We revisited our discussion on regional anesthesia that was performed preoperative and reviewed the procedure and risks (permanent nerve injury, block failure, infection). She understands the risks and is asking to proceed. Performed By: Alton Pena
--- NOTE | 2022-11-23 21:48 | ROE_ITS ---
Date of service: 11/23/22 Time of Service: 13:45 Operative Note Operative Note DATE OF PROCEDURE: 11/23/22 PRE-OP DIAGNOSIS: Right Distal Ulna Fracture POST-OP DIAGNOSIS: same PROCEDURE: Open Reduction and Internal Fixation of Right Distal Ulna SURGEON: Jonathan Encarnacion RIPENING ROOM ATTENDANT: Chet Brower ANESTHESIA TYPE: General LMA/ETT Refer to Anesthesia Record ESTIMATED BLOOD LOSS: 50 PATHOLOGY: none sent COMPLICATIONS: None Patient was transported to: PACU Patient's condition: stable Indications: Carrie is a 67 year old female who has a distal ulna fracture. Given the displacement, fracture pattern, rate of nonunion, and effect on daily function, I recommended surgical fixation. I reviewed the risk of the procedure to inc lude bleeding, infection, stiffness, damage to nerves and vessels, damage to muscles and tendons, malunion, nonunion, hardware prominence, tendon rupture, need for repeat procedures. Despite these risks, the patient elected to proceed. Findings: There is a distal ulna fracture which had no significant healing nad was unstable with wrist motion. It was reduced and fixed with a Synthes 2.7mm locking plate. Procedure Description: Carrie was greeted in the preoperative holding area. The correct patient and site was confirmed and marked. The history and physical was updated. The consent was reviewed the patient and signed. The patient was taken to the operating room and placed in the supine position. All bony problems were well-padded. The right arm was placed onto a radiolucent hand table. A nonsterile tourniquet was placed high up on the arm. Prophylactic antibiotics in the form of c efazolin were administered. The left arm was prepped with ChloraPrep and draped in a standard fashion. A timeout was performed for safe surgery. A standard longitudinal incision was made overlying the subcutaneous border of the ulna. The skin was incised sharply. Careful attention was paid for any particular superficial branches of the ulnar nerve. Traction was made to the soft tissues to expose the fascia overlying the distal ulna. There is notable thickness at the level of fracture site. Periosteum was incised sharply with a knife down to bone. A ly elevator was then utilized to expose the fracture site of the distal ulna. The distal radial ulnar ligaments were left intact as was the interaction between the ECU and the dorsal ulnar head. The fracture was grossly mobile. There was some early callus seen at the distal aspect of the proximal aspect of the fracture was freely moving with any wrist rotation. I was able to close reduce this proximally. However, had a difficult time obtaining reduction and distally. I used a [place] to help free up the fracture site distally but was unable to reduce this completely out of translation given the positioning of the distal ulna to the distal radius, making it difficult to insert any retractors in this area or clamps. I also do not want to violate DRUJ for future stability purposes and therefore excepted some translation with reduction. Holding the reduction was quite challenging given the bone quality of this fracture fragment. I did place a single lag screw to reduce the fracture. However, the bone was cracking with the head of the 2.7 millimeter screw and therefore I removed the screw and lieu of a plate fixation. With the reduction being maintained a 7 hole 2.7 mm LCDCP plate was then placed over the palmar?lateral aspect of the ulna. The reduction was held and a 2.7 mm cortex screw was placed just distal to the fracture but through the plate and both proximal and distal fragments. This helped hold reduction in the plate down to bone. The reduction was still held while to 2.7 mm locking screws were placed distally. A single cortical two-point similar screw was placed proximally to make sure that the plate was secured to the ulna. The plate was slightly palmar, hoping to minimize any hardware prominence. 2 locking screws were placed proximally as well. Locking screws were utilized given the smaller screw structure and plate size but also help control for rotational forces. Final x-rays were obtained which demonstrated adequate reduction and positioning of hardware. The wound was injected with 0.5% bupivacaine. It was thoroughly irrigated. There was some oozing noted from between the radius and the ulna. However, it was not pulsatile. It slowed significantly by the end the case. The fascia was loosely approximated over the plate with 0 Vicryl. The deep subcutaneous tissues were closed with 2-0 Vicryl. The skin was closed with a running 4-0 Monocryl. She was placed in a short arm splint. At the end the case all counts are correct. Patient was transferred back to the PACU in stable condition.
== END 2022-11-23 17:52 | disposition home or self-care (01) ==
PROVIDERS: PCP Student in an Organized Health Care Education/Training Program; Visit Provider Student in an Organized Health Care Education/Training Program
PROC: (CPT 25545; principal; 2022-11-23 13:15)
DX: S52.601A Unspecified fracture of lower end of right ulna, initial encounter for closed fracture (principal); W20.8XXA Other cause of strike by thrown, projected or falling object, initial encounter; E03.9 Hypothyroidism, unspecified; F41.9 Anxiety disorder, unspecified
CPT/HCPCS: 25545; C1889; 76942; 73100; J0131; J0690; J1100; J1885; J2405; J2704; J3010

== ENCOUNTER 2022-12-05 15:21 | Outpatient (CLI) | payer MEDICARE, SELFPAY ==
--- NOTE | 2022-12-05 15:00 | DI.RAD_ITS ---
Exam(s) XR WRIST RT LIMITED EXAM: XR WRIST RT LIMITED CLINICAL HISTORY: S/P ORIF. TECHNIQUE: 2D digital imaging was performed of the right wrist. Two views were obtained. PA and la teral views were obtained. COMPARISON: CR XR WRIST RT COMPLETE from 11/17/2022 CR XR WRIST RT LIMITED from 11/23/2022 FINDINGS: BONES: There is again seen a sideplate and screws transfixing the distal right ulnar fracture. There has been no change in alignment of the fracture or the orthopedic hardware. No new fractures identi fied. No bony destructive lesion is seen. JOINTS: The carpal bones are normally aligned. The joint spaces are well maintained. SOFT TISSUE: Normal. IMPRESSION: Stable alignment of the distal ulnar fracture and orthopedic hardware. DATA REPOSITORY: RADIATION DOSE DELIVERED:
== END 2022-12-05 15:22 | disposition home or self-care (01) ==
LOC: DIORS 15:21
PROVIDERS: PCP Student in an Organized Health Care Education/Training Program; Referring Provider Student in an Organized Health Care Education/Training Program; Visit Provider Student in an Organized Health Care Education/Training Program
DX: S52.691D Other fracture of lower end of right ulna, subsequent encounter for closed fracture with routine healing; X58.XXXD Exposure to other specified factors, subsequent encounter
CPT/HCPCS: 73100

== ENCOUNTER 2022-12-29 09:09 | Outpatient (CLI) | payer MEDICARE, SELFPAY ==
--- NOTE | 2022-12-29 08:56 | DI.RAD_ITS ---
Exam(s) XR WRIST RT LIMITED EXAM: XR WRIST RT LIMITED CLINICAL HISTORY: F/U FRACTURE. TECHNIQUE: 2D digital imaging was performed of the right wrist. Three views were obtained. PA and lateral views were obtained. COMPARISON: CR XR WRIST RT LIMITED from 12/05/2022 FINDINGS: BONES: There is stable ORIF of the distal ulnar fracture. There is no change in alignment of the ort hopedic hardware fracture components. No new fractures identified. No bony destructive lesion is se en. JOINTS: The carpal bones are normally aligned. There are mild degenerative changes seen in the wrist. SOFT TISSUE: There is soft tissue swelling of the distal forearm. IMPRESSION: Stable ORIF of the distal ulna. DATA REPOSITORY: RADIATION DOSE DELIVERED:
== END 2022-12-29 09:10 | disposition home or self-care (01) ==
LOC: DIORS 09:09
PROVIDERS: PCP Student in an Organized Health Care Education/Training Program; Referring Provider Student in an Organized Health Care Education/Training Program; Visit Provider Student in an Organized Health Care Education/Training Program
DX: S52.601D Unspecified fracture of lower end of right ulna, subsequent encounter for closed fracture with routine healing; X58.XXXD Exposure to other specified factors, subsequent encounter
CPT/HCPCS: 73100

== ENCOUNTER 2023-01-12 03:09 | Outpatient (CLI) | payer MEDICARE, SELFPAY ==
[2023-01-12 12:31] LABS: Abs Immature Grans 0.02 10^3/uL (0.0-0.06); Absolute Basophil Count 0.01 10^3/uL (0.0-0.2); Absolute Eosinophil Count 0.09 10^3/uL (0.0-0.7); Absolute Lymphocyte Count 1.38 10^3/uL (1.2-3.4); Absolute Monocyte Count 0.33 10^3/uL (0.1-0.8); Absolute Neutrophil Count 3.17 10^3/uL (1.2-6.7); Basophils % 0.2; Eosinophils % 1.8; HCT 35.9 % (36.0-46.0); HGB 12.2 g/dL (11.2-15.7); Immature Grans % 0.4; Lymphocytes % 27.6; MCH 34.8 pg (27.0-33.0); MCV 102 fL (80-95); MPV 8.9 fL (8.0-11.0); Monocytes % 6.6; Neutrophils % 63.4; Platelet Count 285 10^3/uL (130-400); RBC 3.51 10^6/uL (3.93-5.22); RDW 13.6 % (11.7-14.6); RDW-SD 51.1 fL
[2023-01-12 13:09] LABS: ALT 26 U/L (14-59); AST 29 U/L (15-37); Alkaline Phosphatase 90 U/L (46-116); Anion Gap 8.2 mmol/L (3-11); BUN 17 mg/dL (7-18); Bilirubin, Total 0.8 mg/dL (0.2-1.0); CO2 26.8 mmol/L (21.0-32.0); CREATININE 0.7 mg/dL (0.55-1.02); Calcium 9.6 mg/dL (8.5-10.1); Chloride 102 mmol/L (98-107); Estimated GFR 93.56 (mL/min/1.73m2); Glucose 95 mg/dL (74-106); Potassium 4.2 mmol/L (3.5-5.1); Sodium 137 mmol/L (136-145); Total Protein 7.1 g/dL (6.4-8.2)
== END 2023-01-12 03:10 | disposition home or self-care (01) ==
PROVIDERS: Student in an Organized Health Care Education/Training Program; PCP Student in an Organized Health Care Education/Training Program; Visit Provider Student in an Organized Health Care Education/Training Program
DX: Z79.899 Other long term (current) drug therapy (principal); M05.9 Rheumatoid arthritis with rheumatoid factor, unspecified
CPT/HCPCS: 36415; 80053; 85025

== ENCOUNTER 2023-01-26 11:02 | Outpatient (CLI) | payer MEDICARE, SELFPAY ==
--- NOTE | 2023-01-26 08:30 | DI.RAD_ITS ---
Exam(s) XR WRIST RT LIMITED EXAM: XR WRIST RT LIMITED INDICATION: f/u s/p ORIF R Distal Ulna fx. COMPARISON: CR XR WRIST RT LIMITED from 12/29/2022 TECHNIQUE: 2D digital imaging was performed. Two views. FINDINGS: There has been no change in alignment of the distal ulnar fracture with fixation plate in place. No new abnormalities. DATA REPOSITORY: RADIATION DOSE DELIVERED:
== END 2023-01-26 11:03 | disposition home or self-care (01) ==
LOC: DIORS 11:02
PROVIDERS: PCP Student in an Organized Health Care Education/Training Program; Visit Provider Student in an Organized Health Care Education/Training Program
DX: S52.601D Unspecified fracture of lower end of right ulna, subsequent encounter for closed fracture with routine healing (principal); X58.XXXD Exposure to other specified factors, subsequent encounter
CPT/HCPCS: 73100

== ENCOUNTER 2023-03-02 13:51 | Outpatient (CLI) | payer MEDICARE, SELFPAY ==
--- NOTE | 2023-03-02 09:18 | DI.RAD_ITS ---
Exam(s) XR WRIST RT LIMITED EXAM: XR WRIST RT LIMITED CLINICAL HISTORY: s/p R ULNA FX. TECHNIQUE: 2D digital imaging was performed of the right wrist. Two views were obtained. PA and la teral views were obtained. COMPARISON: CR XR WRIST RT LIMITED from 01/26/2023 FINDINGS: BONES: There is again seen an ORIF of the distal right ulnar fracture. The fracture line is still vi sualized. No new fracture is seen. No bony destructive lesion is seen. JOINTS: The carpal bones are normally aligned. SOFT TISSUE: Normal. IMPRESSION: Stable alignment of the distal right ulnar fracture and orthopedic hardware. DATA REPOSITORY: RADIATION DOSE DELIVERED:
== END 2023-03-02 13:52 | disposition home or self-care (01) ==
LOC: DIORS 13:51
PROVIDERS: PCP Student in an Organized Health Care Education/Training Program
DX: S52.691D Other fracture of lower end of right ulna, subsequent encounter for closed fracture with routine healing (principal); X58.XXXD Exposure to other specified factors, subsequent encounter
CPT/HCPCS: 99213; 73100

== ENCOUNTER 2023-04-06 15:00 | Outpatient (CLI) | payer MEDICARE, SELFPAY ==
[2023-04-06 15:12] LABS: Abs Immature Grans 0.01 10^3/uL (0.0-0.06); Absolute Basophil Count 0.01 10^3/uL (0.0-0.2); Absolute Eosinophil Count 0.14 10^3/uL (0.0-0.7); Absolute Lymphocyte Count 1.25 10^3/uL (1.2-3.4); Absolute Monocyte Count 0.46 10^3/uL (0.1-0.8); Absolute Neutrophil Count 3.27 10^3/uL (1.2-6.7); Basophils % 0.2; Eosinophils % 2.7; HCT 35.6 % (36.0-46.0); HGB 12.1 g/dL (11.2-15.7); Immature Grans % 0.2; Lymphocytes % 24.3; MCH 34.2 pg (27.0-33.0); MCV 101 fL (80-95); MPV 9.3 fL (8.0-11.0); Monocytes % 8.9; Neutrophils % 63.7; Platelet Count 270 10^3/uL (130-400); RBC 3.54 10^6/uL (3.93-5.22); RDW 12.7 % (11.7-14.6); RDW-SD 45.6 fL; WBC 5.14 10^3/uL (4.4-10.8)
[2023-04-06 15:31] LABS: ALT 25 U/L (14-59); AST 21 U/L (15-37); Albumin 3.6 g/dL (3.4-5.0); Alkaline Phosphatase 92 U/L (46-116); Anion Gap 6.9 mmol/L (3-11); BUN 16 mg/dL (7-18); Bilirubin, Total 0.4 mg/dL (0.2-1.0); CO2 29.1 mmol/L (21.0-32.0); CREATININE 0.8 mg/dL (0.55-1.02); Calcium 9.6 mg/dL (8.5-10.1); Chloride 105 mmol/L (98-107); Estimated GFR 79.71 (mL/min/1.73m2); Glucose 129 mg/dL (74-106); Potassium 3.9 mmol/L (3.5-5.1); Sodium 141 mmol/L (136-145); Total Protein 6.9 g/dL (6.4-8.2)
== END 2023-04-06 15:01 | disposition home or self-care (01) ==
LOC: LBO 15:01
PROVIDERS: PCP Student in an Organized Health Care Education/Training Program; Visit Provider Student in an Organized Health Care Education/Training Program
DX: Z79.899 Other long term (current) drug therapy (principal)
CPT/HCPCS: 36415; 80053; 85025

== ENCOUNTER 2023-04-17 14:07 | Outpatient (CLI) | payer MEDICARE, SELFPAY ==
--- NOTE | 2023-04-17 08:00 | DI.RAD_ITS ---
Exam(s) XR WRIST RT LIMITED EXAM: XR WRIST RT LIMITED CLINICAL HISTORY: f/u R distal ulna ORIF. TECHNIQUE: 2D digital imaging was performed. COMPARISON: CR XR WRIST RT LIMITED from 03/02/2023 FINDINGS: Two views-AP and lateral. Fixation plate in the distal ulna again noted. Fracture line still visible. No obvious further disp lacement. No evidence of osteomyelitis. IMPRESSION: As above. DATA REPOSITORY: RADIATION DOSE DELIVERED:
== END 2023-04-17 14:08 | disposition home or self-care (01) ==
LOC: DIORS 14:07
PROVIDERS: PCP Student in an Organized Health Care Education/Training Program; Referring Provider Student in an Organized Health Care Education/Training Program; Visit Provider Student in an Organized Health Care Education/Training Program
DX: M65.831 Other synovitis and tenosynovitis, right forearm; S52.691S Other fracture of lower end of right ulna, sequela
CPT/HCPCS: 20550; 73100; J1030

== ENCOUNTER 2023-06-09 11:20 | Outpatient (CLI) | payer MEDICARE, SELFPAY ==
--- NOTE | 2023-06-09 09:45 | DI.RAD_ITS ---
Exam(s) XR HIP RT AP LAT ONLY EXAM: XR HIP RT AP LAT ONLY CLINICAL HISTORY: ANNUAL F/U L MARGUERITE. TECHNIQUE: 2D digital imaging was performed. Two images were obtained. AP and lateral views were ob tained. COMPARISON: CR XR HIP RT COMPLETE AP PELVIS from 06/23/2022 FINDINGS: BONES: There are stable post operative changes of a right total hip replacement present. No fracture or dislocation. JOINTS: The orthopedic hardware is in good position. No evidence of hardware loosening. SOFT TISSUE: Normal. IMPRESSION: Stable right total hip replacement. DATA REPOSITORY: RADIATION DOSE DELIVERED:
--- NOTE | 2023-06-09 10:00 | DI.RAD_ITS ---
Exam(s) XR WRIST RT LIMITED EXAM: XR WRIST RT LIMITED CLINICAL HISTORY: RIGHT ULNA FX. TECHNIQUE: 2D digital imaging was performed. Two images were obtained. PA and lateral views were ob tained. COMPARISON: CR XR WRIST RT LIMITED from 04/17/2023 FINDINGS: BONES: There are stable post operative changes present. There still appears to be a small component of the fracture line visualized medially. No new fracture or dislocation. JOINTS: The joint spaces are well maintained. SOFT TISSUE: Normal. IMPRESSION: Stable postoperative changes. DATA REPOSITORY: RADIATION DOSE DELIVERED:
== END 2023-06-09 11:21 | disposition home or self-care (01) ==
LOC: DIORS 11:20
PROVIDERS: PCP Student in an Organized Health Care Education/Training Program; Referring Provider Student in an Organized Health Care Education/Training Program; Visit Provider Physician Assistant
DX: Z96.641 Presence of right artificial hip joint (principal); Z47.1 Aftercare following joint replacement surgery; S52.691D Other fracture of lower end of right ulna, subsequent encounter for closed fracture with routine healing; X58.XXXD Exposure to other specified factors, subsequent encounter
CPT/HCPCS: 99213; 73100; 73502

== ENCOUNTER 2023-08-02 04:58 | Outpatient (RCR) | payer MEDICARE, SELFPAY ==
[2023-08-02 10:15] VITALS: BP 118/70; PULSE 66; RESP 17; TEMP 36.5; O2SAT 97
[2023-08-02] MEDS: methylPREDNISolone SUCC 125 MG VIAL 100 MG IVP (10:31)
[2023-08-02] MEDS: ZOLEDRONIC ACID/MANNITOL/WATER 5 MG/100 ML BTL 200 MG IVPB (11:09)
[2023-08-02 11:40] VITALS: BP 135/76; PULSE 58; RESP 17; TEMP 36.3; O2SAT 98
[2023-08-02] MEDS: Normal Saline Flush 10 ML SYR IVP (11:42)
== END 2023-08-11 23:59 | disposition home or self-care (01) ==
LOC: INF 04:58
PROVIDERS: PCP Student in an Organized Health Care Education/Training Program; Visit Provider Family Medicine
DX: M81.0 Age-related osteoporosis without current pathological fracture (principal)
CPT/HCPCS: 96365; J1602; J2919; J3489

== ENCOUNTER 2023-08-09 08:40 | Day surgery (SDC) | payer MEDICARE, SELFPAY ==
[2023-08-09 08:50] VITALS: BP 126/78; PULSE 59; RESP 16; TEMP 36.3; O2SAT 98
--- NOTE | 2023-08-09 09:08 | W.ANESPRE ---
General Info Date of Service Date Performed: 08/09/23 Height: 5 ft 9 in Weight: 69.3 kg Body Mass Index (BMI): 22.5 Surgical Procedure: Operation Date: 08/09/23 11:40 Proposed Procedure Side Surgeon p Hardware Removal Wrist Right Jonathan Encarnacion MD Meds Allergies and Home Medications Allergies Allergy/AdvReac Type Severity Reaction Status Date / Time No Known Allergies Allergy Verified 08/09/23 09:05 Home Medication Medication Instructions Recorded methotrexate sodium 2.5 mg tablet 25 mg PO weekly #8 tab-caps 06/19/20 folic acid 1 mg tablet 3 mg (3 x 1 mg) PO DAILY 03/30/22 methotrexate rx for RA. #90 tab-caps calcium carbonate 600 mg-vitamin 1 tab PO DAILY 06/08/22 D3 10 mcg (400 unit) tablet (Calcium with Vitamin D) multivitamin 1 tab DAILY 06/08/22 acetaminophen 500 mg tablet 1,000 mg (2 x 500 mg) PO TID #90 11/23/22 tabs fluoxetine 20 mg capsule 20 mg PO DAILY #90 caps 01/22/23 valacyclovir 500 mg tablet 500 mg PO DAILY HSV Suppression Tx 02/10/23 #90 tabs levothyroxine 50 mcg tablet 50 mcg PO DAILY #90 tab-caps 03/03/23 trazodone 50 mg tablet See Rx Instructions .Route 03/14/23 .COMPLEX #90 tabs golimumab 12.5 mg/mL intravenous 100 mg IV Q8W 04/28/23 solution ciprofloxacin 0.3 %-dexamethasone 4 drp otic (ear) BID #7.5 mL 07/25/23 0.1 % ear drops,suspension golimumab 12.5 mg/mL intravenous 100 mg IV Q8W 07/25/23 solution Current Visit Medications: Current Medications Generic Name Dose Route Start Last Admin Trade Name Freq PRN Reason Stop Dose Admin Acetaminophen 1,000 mg 08/09/23 06:00 Acetaminophen 500 Mg Tab PO 08/09/23 23:59 PREOP ERIC Celecoxib 400 mg 08/09/23 06:00 Celecoxib 200 Mg Cap PO 08/09/23 23:59 PREOP ERIC Ringer's Solution 1,000 mls @ 80 mls/hr 08/09/23 06:00 IV 08/09/23 23:59 INFUSION ERIC Tranexamic Acid/Sodium Chloride 1,000 mg in 100 mls @ 600 mls/hr 08/09/23 06:00 IVPB 08/09/23 23:59 PREOP ERIC IV Miscellaneous Supplies 1 each 08/09/23 06:00 Iv Access IV 08/09/23 23:59 DIRECTED ERIC Sodium Chloride 0 ml 08/09/23 06:00 Normal Saline Flush 10 Ml Syr IV 08/09/23 23:59 PRN PRN Sodium Chloride 0 ml 08/09/23 06:00 Normal Saline 10 Ml Vial IJ 08/09/23 23:59 DIRECTED PRN Sterile Water 0 ml 08/09/23 06:00 Water,Injection,Sterile 10 Ml Vial IJ 08/09/23 23:59 DIRECTED PRN PFSH Active Problems Active Problems: Problem Status Onset Code Painful orthopaedic hardware T84.84XA History of right hip replacement 06/08/22 Z96.641 Extensor tenosynovitis of right wrist M65.831 Advance directive in chart 05/18/16 Z78.9 Anxiety F41.9 Diverticulosis of sigmoid colon 10/07/16 K57.30 Hypothyroidism (acquired) E03.9 Insomnia G47.00 Malignant neoplasm of unspecified site of right female breast 04/24/15 C50.911 Osteoarthritis of both knees M17.0 Osteopenia 12/26/13 M85.80 Rheumatoid arthritis M06.9 Screening for hyperlipidemia 05/20/16 Z13.220 Hx of breast lump removal Z98.890 Thyroid disease E07.9 Hearing loss sensory, bilateral H90.3 Abnormal auditory perception of right ear H93.291 Trochanteric bursitis, right hip M70.61 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 Hx of herpes simplex infection Z86.19 Adjustment disorder F43.20 Fatigue R53.83 Unstable knee M25.369 Trigger finger, left ring finger M65.342 Trigger thumb, right thumb M65.311 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 Possible gait change 2' rt knee instability? Left outer pain, quite sensitive! Osteoarthritis Knees Postmenopausal LMP age 46 s/p HRT stopped in 2009 History of breast cancer Surgical History Surgical History History of total right hip replacement (06/08/22) Hx of colonoscopy Ligation of fallopian tube Replacement of total knee joint (08/17/16) R knee, Monie Gamino Right tibial plateau fx ORIF (03/03/10) Open Carpal Tunnel release (~02/2006) Right carpal tunnel release Ganglion Cyst Excision R ankle Breast, Lumpectomy (~2010) R breast cancer Tobacco Smoking/Tobacco Use Status: Never Passive smoking exposure: No Alcohol Alcohol Intake: current Alcohol intake frequency: a few times a week Alcohol type: wine Substance Use Substance use: Never Substance use type: does not use Vital Signs and Lab Results Vital Signs Most Recent Vital Signs in EMR: Most Recent Vital Signs Temp Pulse Resp BP Pulse Ox 36.3 C L 59 L 16 126/78 98 08/09/23 08:50 08/09/23 08:50 08/09/23 08:50 08/09/23 08:50 08/09/23 08:50 Lab Results Blood Type / Crossmatch: No Data to Display Complete Blood Count: No Data to Display Complete Metabolic Panel: No Data to Display Liver Function Panel: No Data to Display Coagulation Panel: No Data to Display Cardiac Panel: No Data to Display Arterial Blood Gas: No Data to Display Venous Blood Gas: No Data to Display Pancreas Panel: No Data to Display Thyroid Panel: No Data to Display Infectious Disease: No Data to Display Blood Cultures: No Data to Display Toxicology Panel: No Data to Display Anesthesia Assessment and Plan Anesthesia History Personal History: No History of Anesthesia Complications Family History: No Family History of Anesthesia Complications Exercise Tolerance Exercise Tolerance: Metabolic Equivalents>4 Cardiac & Pulmonary Exam Cardiac Exam: Normal S1/S2 Heart Sounds Pulmonary Exam: Clear Bilateral Breath Sounds Implantable Cardiac Device Does patient have a Pacemaker or an ICD?: No Airway Exam Known Difficult Airway: No Mallampati Class: 1 Mouth Opening: Normal (> 3cm) Thyromental Distance: Greater than 3 cm Neck Range of Motion: Full ROM Neck Circumference: Normal Teeth Condition: Normal Dentition ASA Classification ASA Score: ASA 2 Emergency Case?: No NPO Status NPO Status: NPO Clears >2 hours, Solids >8 hours Anesthesia Plan Resuscitation Status: Full Code Anesthesia Technique: General Anesthesia Airway Planned: Natural Airway Monitors Used: Standard Monitors
[2023-08-09] MEDS: Celecoxib 200 MG CAP 400 MG PO (09:09)
[2023-08-09] MEDS: Acetaminophen 500 MG TAB 1000 MG PO (09:10)
[2023-08-09 09:11] VITALS: BMI 22.5
[2023-08-09] MEDS: Lactated Ringers 1,000 ML 80 ML IV (09:18)
--- NOTE | 2023-08-09 09:42 | PDOC.DSDIS_ITS ---
Date of service: 08/09/23 Time of Service: 09:42 Discharge Plan Disposition Patient Disposition: Home Condition: Good Discharge Details Reason For Visit: Removal Hadware R wrist Attending Provider: Jonathan Encarnacion Primary Care Provider: Haylee Campoverde Home Meds and New Rx's Prescriptions: New acetaminophen 500 mg tablet 1,000 mg PO TID Qty: 90 0RF hydrocodone-acetaminophen 5-325 mg tablet 1 tab PO Q6H PRN (Reason: pain) Qty: 6 0RF Continued golimumab 12.5 mg/mL solution 100 mg IV Q8W Rx Instructions: administer over 30 mins golimumab 12.5 mg/mL solution 100 mg IV Q8W Rx Instructions: administer over 30 mins ciprofloxacin-dexamethasone 0.3-0.1 % drops,suspension 4 drp otic (ear) BID Qty: 7.5 0RF methotrexate sodium 2.5 mg tablet 25 mg PO weekly Qty: 8 Rx Instructions: Source: head counselor; increased to 25mg weekly (11/25/20). EO folic acid 1 mg tablet 3 mg PO DAILY Qty: 90 3RF fluoxetine 20 mg capsule 20 mg PO DAILY Qty: 90 1RF Rx Instructions: Trial, new Rx for capsule valacyclovir 500 mg tablet 500 mg PO DAILY Qty: 90 3RF Rx Instructions: Suppressive Therapy levothyroxine 50 mcg tablet 50 mcg PO DAILY Qty: 90 3RF Rx Instructions: Take in the morning on an empty stomach, at least 30-60 minutes before food. trazodone 50 mg tablet See Rx Instructions .ROUTE .COMPLEX Qty: 90 1RF Dose Instruction: TAKE 1 TABLET BY MOUTH AT BEDTIME Rx Instructions: TAKE 1 TABLET BY MOUTH AT BEDTIME multivitamin Tablet 1 tab DAILY calcium carbonate-vitamin D3 [Calcium with Vitamin D] 600 mg-10 mcg (400 unit) Tablet 1 tab PO DAILY Discontinued acetaminophen 500 mg tablet 1,000 mg PO TID Qty: 90 0RF Discharge Instructions Additional Instructions: Wrist Hardware Removal Discharge Instructions Activity: You should keep the hand/wrist elevated as much as possible for the first few days. You may use the other fingers as tolerated but avoid trying to do too much too soon. You may perform light activities with the splint in place. Dressing/Cast: Your splint should stay in place at all times. Do NOT get it wet. You may loosen the GARETH wrap if you feel it is too tight and then rewrap more loosely. Medications: - You should take Tylenol for baseline pain control. - You have been prescribed a stronger pain medication, hydrocodone, for breakthrough pain. - You may apply ice over the wrist, just double bag so it doesn't get wet. Follow-up: 10-14 days Referrals: Jonathan Encarnacion MD [ [facility] STAFF PHYSICIAN] - Equipment/Supplies: Splint Activity:: Elevate Remove Dressings/Wound Care:: Do Not Remove Shower/Bathe:: Cover Diet:: As Tolerated Discharge Orders Discharge Orders: Discharge Order (Routine); Ordered 08/09/23 Ordered By: Chet Brower DS: Diagnosis Discharge Diagnosis (1) Painful orthopaedic hardware: Status: Acute
--- NOTE | 2023-08-09 10:03 | HPE_ITS ---
Assessment and Plan Assessment and plan (1) Painful orthopaedic hardware: Status: Acute Assessment and plan: Carrie is a 68-year-old female who has recovered from ORIF of her right distal ulna fracture. The plate is palpable and cause her ear some irritation of the tissues. She like it removed. I discussed the technical features of the case peer discussed the risk to include bleeding, infection, pain, stiffness, refracture, damage to nerves and vessels, tissue irritation, need for repeat procedures. Despite these risk, she elects to proceed. History of Present Illness History of Present Illness Chief Complaint: Painful hardware right wrist Narrative: Carrie is a 68-year-old female who is status post ORIF of a right distal ulna fracture. She had significant improvement with apparent fracture healing. However, developed tendinitis and swelling about the wrist with some irritation from the hardware. Please see the previous office notes, however, she would like to have this hardware removed. She denies any recent health changes. No chest pain or shortness of breath. Review of Systems All systems reviewed & are unremarkable except as noted in HPI and below PFSH All Active Problems Painful orthopaedic hardware (Acute) L Wrist S/P Removal: 08/09/2023 History of right hip replacement (Acute 06/08/22) Extensor tenosynovitis of right wrist (Acute) Advance directive in chart (Acute 05/18/16) Pt reports on-file with [place] registry Anxiety (Acute) Fluox started over this past year, 2018. 10-->20mg, doing well. Helping lessen anx/extremes. Mild panic, worry episodes occur, but a alk or cognitive review helps. Diverticulosis of sigmoid colon (Acute 10/07/16) colonoscopy 10/07/16; internal hemorrhoids noted; repeat colo 10 yrs recommen ded. Next due 10/07/26 per [facility]. Hypothyroidism (acquired) (Acute) Insomnia (Acute) Malignant neoplasm of unspecified site of right female breast (Acute 04/24/15) lumpectomy 03/2010, radiation, tamoxifen. Br Cancer Screening DUE 05/08/20 per [facility] records. Osteoarthritis of both knees (Acute) [facility] Ortho, joint injections Osteopenia (Acute 12/26/13) Femoral neck T-score = -1.0 --> WHO FRAX = 16% major osteoporotic & 1.1% hip fx --> no bisphosphonates at this time, recommended Ca/Vit d, recheck 5 years ((Osteopenia per 2011 Dexa)) Rheumatoid arthritis (Acute) Dr. Payton q4mos, labs q3mos --> referral to Dr. Chris 04/24/2015 to establish care closer. Affects hands mostly Screening for hyperlipidemia (Acute 05/20/16) 05/2016 labwork: 10- year ASCVD risk = ~3.3% Hx of breast lump removal (Chronic) With significant malformation post radiation .. puckering & tissue/texture changes. 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 shortened with quick use of Rx, but considering proph. Adjustment disorder (Chronic) As can be expected, retiring .. Fatigue (Acute) Unstable knee (Acute) Trigger finger, left ring finger (Acute) Beocmign worse, painful.. Trigger thumb, right thumb (Acute) Androgenetic alopecia (Acute) Angular cheilitis (Acute) Seborrheic keratoses (Acute) [place] [facility] [place] actinic keratosis,lentigo, cherrry angioma, multiple benign nevi, HSV infection (Acute) S/P biopsy (Acute) 04/04/22- skin shave biopsy, right dorsal hand. [facility] derm Osteoporosis (Chronic) DEXA 06/07/23 Internal nasal lesion (Acute) Hx papule, outer nare with palpable nod, but no evident abscess/papule. Inner nare/septum ulcerous lesion. Pes anserinus bursitis of right knee (Acute) 40 mg Depo-Medrol injection: 08/30/2022; 05/06/2022 Depression (Chronic) Migraines (Chronic) Right ankle pain (Acute) Peroneal tendonitis of right lower extremity (Acute) COVID (Acute ~09/27/22) 10/05/22-call from her with return of sx's. (?rebound covid) Right distal ulnar fracture (Acute 11/02/22) S/P ORIF: 11/23/2022 Medical History Hx of headache Left foot pain No injury, possible stress fracture? Possible gait change 2' rt knee instability? Left outer pain, quite sensitive! Osteoarthritis Knees Postmenopausal LMP age 46 s/p HRT stopped in 2009 History of breast cancer Surgical History History of total right hip replacement (06/08/22) Hx of colonoscopy Ligation of fallopian tube Replacement of total knee joint (08/17/16) R knee, Dr George Veronica, Monie Nam Right tibial plateau fx ORIF (03/03/10) Open Carpal Tunnel release (~02/2006) Right carpal tunnel release Ganglion Cyst Excision R ankle Breast, Lumpectomy (~2010) R breast cancer Family History Father Substance abuse Alcoholism Heart disease Myocardial infarction Sister Personal history of malignant neoplasm Thyroid Cancer Sister , Lung at age 62. Personal history of malignant neoplasm Lung (smoker) & Cervical Cancer Brother Heart disease Myocardial infarction CABG Mother Mental disorder ?borderline personality disorder Sister SLE (systemic lupus erythematosus) Sister Mental disorder Unknown, likely bipolar Social History Smoking/Tobacco Use Status: Never Smoking risk assessment performed?: Yes Alcohol Intake: current Alcohol Intake frequency: a few times a week Alcohol type: wine Drug use: Never Substance use type: does not use Adopted: No Caregiver/Support person: No Foster care: No Household members: spouse Housing: house Number of Children: 3 number of grandchildren: 5 Communication Needs: Corrective Lenses Education Level: master's degree Do you need help understanding health information?: Never current occupation: Admin ssistant [employer] Pets and animals: Yes Pets and animals: cat(s) and dog(s) Sexually active: No Do you think of yourself as: straight/heterosexual Current gender identity: female What is your relationship status?: How often do you talk on the phone with friends or family?: once per week How often do you get together with friends or relatives?: once per week Do you belong to any clubs or organized social groups?: yes Panel score (0-1 are the most socially isolated patients): 2 What type of physical activity do you participate in: walking Duration: 45-60 minutes/day Frequency: 3-4 times per week Sakina/Advent: None Special sakina needs: No Seatbelt use: always Helmet use: Yes Drive intox or ride w/intox paratransit driver: No Working smoke detector in home: Yes Fire extinguisher in home: Yes Carbon monox detector in home: Yes Do you feel safe at home: Yes Do you feel safe in your relationship?: Yes Meds Allergies and Home Medications Allergies Allergy/AdvReac Type Severity Reaction Status Date / Time No Known Allergies Allergy Verified 08/09/23 09:05 Home Medications Medication Instructions Recorded Confirmed Type methotrexate sodium 2.5 mg tablet 25 mg PO weekly #8 tab-caps 06/19/20 08/09/23 History folic acid 1 mg tablet 3 mg (3 x 1 mg) PO DAILY 03/30/22 08/09/23 Rx methotrexate rx for RA. #90 tab-caps calcium carbonate 600 mg-vitamin 1 tab PO DAILY 06/08/22 08/09/23 History D3 10 mcg (400 unit) tablet (Calcium with Vitamin D) multivitamin 1 tab DAILY 06/08/22 07/25/23 History fluoxetine 20 mg capsule 20 mg PO DAILY #90 caps 01/22/23 08/09/23 Rx valacyclovir 500 mg tablet 500 mg PO DAILY HSV Suppression Tx 02/10/23 08/09/23 Rx #90 tabs levothyroxine 50 mcg tablet 50 mcg PO DAILY #90 tab-caps 03/03/23 08/09/23 Rx trazodone 50 mg tablet See Rx Instructions .Route 03/14/23 08/09/23 Rx .COMPLEX #90 tabs golimumab 12.5 mg/mL intravenous 100 mg IV Q8W 04/28/23 07/25/23 History solution ciprofloxacin 0.3 %-dexamethasone 4 drp otic (ear) BID #7.5 mL 07/25/23 08/09/23 Rx 0.1 % ear drops,suspension golimumab 12.5 mg/mL intravenous 100 mg IV Q8W 07/25/23 07/25/23 History solution acetaminophen 500 mg tablet 1,000 mg (2 x 500 mg) PO TID #90 05/29/24 Rx tabs hydrocodone 5 mg-acetaminophen 325 1 tab PO Q6H PRN pain #6 tabs 08/09/23 Rx mg tablet Exam Resp Effort & Inspection: normal respiratory effort Auscultation: clear to auscultation bilaterally Cardio Rate: regular rate Rhythm: regular rhythm Results Last Vital Signs Temp 36.3 C L 08/09/23 08:50 Pulse 59 L 08/09/23 08:50 Resp 16 08/09/23 08:50 BP 126/78 08/09/23 08:50 Pulse Ox 98 08/09/23 08:50
[2023-08-09] MEDS: ceFAZolin 2 GM/50 ML BAG 100 GM (10:21)
[2023-08-09] MEDS: Bupivacaine 0.25% Pres-Free 30 ML VIAL (10:41)
[2023-08-09 11:03] VITALS: BP 106/72; PULSE 62; RESP 16; O2SAT 99
--- NOTE | 2023-08-09 11:07 | W.ANESPOSTOP ---
Postoperative Evaluation Date, Time and Location Date Performed: 08/09/23 Time Performed: 11:07 Patient Location: Day Surgery Unit Vital Signs Most Recent Imported Vital Signs: Most Recent Vital Signs Temp Pulse Resp BP Pulse Ox 36.3 C L 62 16 106/72 99 08/09/23 08:50 08/09/23 11:03 08/09/23 11:03 08/09/23 11:03 08/09/23 11:03 Pain Score Most Recent Pain Score: Most Recent Pain Score Pain Level 0 08/09/23 11:03 Assessment Mental Status: Awake (Alert & Oriented to Patient Baseline) Airway and Respiratory Function: Patent airway with normal (patient baseline) respiratory exam Cardiovascular Function: Hemodynamically Stable Hydration Status: Adequately Hydrated Nausea & Vomiting: No Nausea or Vomiting Pain: Pt. Denies Any Pain Peripheral Nerve Block: Patient did not receive a nerve block
[2023-08-09 11:14] VITALS: BP 106/79; PULSE 63; RESP 16; TEMP 36.6; O2SAT 99
--- NOTE | 2023-08-09 11:20 | W.PM.OP ---
Date of service: 08/09/23 Time of Service: 10:30 Operative Note Operative Note DATE OF PROCEDURE: 08/09/23 PRE-OP DIAGNOSIS: Painful hardware, right wrist POST-OP DIAGNOSIS: same PROCEDURE: Removal of hardware, right wrist SURGEON: Jonathan Encarnacion ANESTHESIA TYPE: General LMA/ETT Refer to Anesthesia Record ESTIMATED BLOOD LOSS: 10 PATHOLOGY: none sent TOURNIQUET TIME: 0 COMPLICATIONS: None Patient was transported to: same day Indications: Carrie is a 68-year-old active female who is status post open reduction internal fixation of an unstable distal ulna fracture on the right. She appeared to have progress with fracture healing but had irritation of the plate and soft tissues. Due to the pain and swelling around the plate she desired this to be removed. I reviewed the technical details of the case. I discussed the risk to include bleeding, infection, pain, stiffness, refracture, need repeat procedures, damage to nerves and vessels, damage to muscle and tendons. Despite these risk, she elected to proceed. Findings: The plate was removed without difficulty. The nonlocking screw was loose. Procedure Description: Carrie was greeted the preoperative holding area. I did was confirmed the correct site was identified and marked. The consent was reviewed the patient and signed. History physical was updated. She is a takeback to the operating room placed in supine position. All bony problems well-padded. Prophylactic antibiotics in form of cefazolin were given. The right arm was then prepped ChloraPrep and draped in sterile fashion. No tourniquet was utilized. A timeout is performed for safe surgery. The surgical site was injected with 0.25% bupivacaine. The previous incision was then incised sharply. Once through the skin and subcutaneous tissue deeper dissection was used with a Metzenbaum scissors. The edge of the plate was identified. I was able to incise a veil of soft tissue on top of the plate. Immediate there is a ag of synovial type fluid from around the plate where there is been almost a bursitis forming. Using a ly elevator was able to dissect the tissues from overlying the plate. There is a nonlocking screw within the middle the plate was loose. This was removed with minimal effort. The remainder of the screws were locking and these were removed without difficulty, not showing any signs of gross loosening. Once all sick screws were removed, the plate was removed. The underlying tissues were debrided with a rongeur and a curette. The screw holes were debrided with a curette. The wound was thoroughly irrigated. Deep tissues were then injected with 0.25% bupivacaine. The deep layer was closed with 3-0 Vicryl. The skin was closed with a running, subcuticular 4-0 Monocryl. This was reinforced with skin glue. An ulnar gutter type splint was then applied. At the end the case all counts were correct. She is transferred by day surgery without notable complication.
== END 2023-08-09 11:50 | disposition home or self-care (01) ==
PROVIDERS: PCP Student in an Organized Health Care Education/Training Program; Visit Provider Student in an Organized Health Care Education/Training Program
PROC: (CPT 20680; principal; 2023-08-09 11:30)
DX: T84.84XA Pain due to internal orthopedic prosthetic devices, implants and grafts, initial encounter (principal); E03.9 Hypothyroidism, unspecified; M81.0 Age-related osteoporosis without current pathological fracture
CPT/HCPCS: 20680; J0665; J0690; J1100; J1885; J2001; J2250; J2405; J2704

== ENCOUNTER → 2023-08-21 09:57 | Outpatient (BNVA) | payer MEDICARE, SELFPAY | PROVIDERS: PCP Student in an Organized Health Care Education/Training Program; Referring Provider Student in an Organized Health Care Education/Training Program; Visit Provider Student in an Organized Health Care Education/Training Program | DX: Z47.89 Encounter for other orthopedic aftercare (principal); T84.84XA Pain due to internal orthopedic prosthetic devices, implants and grafts, initial encounter ==

== ENCOUNTER 2023-10-25 09:37 | Outpatient (CLI) | payer MEDICARE, SELFPAY ==
--- NOTE | 2023-10-25 09:52 | DI.RAD_ITS ---
Exam(s) XR TOE RT FOURTH EXAM: XR TOE RT FOURTH CLINICAL HISTORY: right 4th toe pain and swelling after injury, M79.676, S99.659A. TECHNIQUE: 2D digital imaging was performed. Three images were obtained. COMPARISON: CR XR FOOT RT LIMITED from 12/20/2021 FINDINGS: BONES: There is an acute nondisplaced fracture diaphysis of the proximal phalanx of the right 4th to e. No bony destructive lesion is seen. JOINTS: No dislocation present. SOFT TISSUE: Normal. IMPRESSION: Nondisplaced fracture of the proximal phalanx of the right 4th toe. DATA REPOSITORY: RADIATION DOSE DELIVERED:
== END 2023-10-25 09:57 ==
LOC: DI 09:39
PROVIDERS: PCP Student in an Organized Health Care Education/Training Program; Visit Provider Nurse Practitioner
DX: S92.514A Nondisplaced fracture of proximal phalanx of right lesser toe(s), initial encounter for closed fracture (principal); X58.XXXA Exposure to other specified factors, initial encounter
CPT/HCPCS: 73660

== ENCOUNTER 2024-04-17 00:15 | Outpatient (CLI) | payer MEDICARE, SELFPAY ==
--- NOTE | 2024-04-17 07:15 | DI.RAD_ITS ---
Exam(s) XR FOOT LT COMPLETE EXAM: XR FOOT LT COMPLETE CLINICAL HISTORY: Left foot pain,m79.672. TECHNIQUE: 2D digital imaging was performed of the left foot. Three images were obtained. AP, obli que and lateral views were obtained. COMPARISON: CR XR FOOT LT LIMITED from 12/20/2021 FINDINGS: BONES: No acute fracture is present. No bony destructive lesion is seen. There is a small enthesophyt e at the posterior calcaneus. JOINTS: No dislocation present. The joint spaces are well maintained. SOFT TISSUE: No radiopaque foreign bodies or soft tissue gas is appreciated. IMPRESSION: No acute abnormality. DATA REPOSITORY: RADIATION DOSE DELIVERED:
== END 2024-04-17 00:35 ==
PROVIDERS: PCP Nurse Practitioner Adult Health; Visit Provider Podiatrist
DX: M79.672 Pain in left foot (principal); G57.62 Lesion of plantar nerve, left lower limb; B35.1 Tinea unguium; L60.3 Nail dystrophy
CPT/HCPCS: 29540; 64455; 99214; J0702; J1100; 73630

== ENCOUNTER 2024-05-22 04:25 | Outpatient (CLI) | payer MEDICARE, SELFPAY ==
[2024-05-22 09:58] LABS: ALT 29 U/L (14-59); AST 26 U/L (15-37); Albumin 3.8 g/dL (3.4-5.0); Alkaline Phosphatase 64 U/L (46-116); BUN 16 mg/dL (7-18); Bilirubin, Total 0.7 mg/dL (0.2-1.0); CREATININE 0.8 mg/dL (0.55-1.02); Calculated LDL 116 mg/dL (<100); Chloride 107 mmol/L (98-107); Cholesterol 208 mg/dL (<200); Estimated GFR 78.72 (mL/min/1.73m2); Glucose 83 mg/dL (74-106); HDL Cholesterol 82 mg/dL (>or=50); Potassium 4.6 mmol/L (3.5-5.1); Sodium 143 mmol/L (136-145); TSH (W/Ref FT4) 1.87 uIU/mL (0.36-3.74); Total Protein 6.7 g/dL (6.4-8.2); Triglyceride 52 mg/dL (<150); Vitamin D 25 Total 52 ng/mL (30-100)
== END 2024-05-22 04:26 | disposition home or self-care (01) ==
PROVIDERS: PCP Nurse Practitioner Adult Health; Referring Provider Nurse Practitioner Adult Health; Visit Provider Nurse Practitioner Adult Health
DX: Z13.220 Encounter for screening for lipoid disorders (principal); Z13.1 Encounter for screening for diabetes mellitus; E03.9 Hypothyroidism, unspecified; M81.0 Age-related osteoporosis without current pathological fracture; Z13.6 Encounter for screening for cardiovascular disorders
CPT/HCPCS: 36415; 64455; 80053; 80061; 82306; 84443

== ENCOUNTER → 2024-06-19 15:31 | Outpatient (BNVA) | payer MEDICARE, SELFPAY | PROVIDERS: PCP Nurse Practitioner Adult Health; Referring Provider Nurse Practitioner Adult Health; Visit Provider Podiatrist | DX: G57.62 Lesion of plantar nerve, left lower limb (principal); M79.672 Pain in left foot; L60.3 Nail dystrophy; B35.1 Tinea unguium | CPT/HCPCS: 99214 ==

== ENCOUNTER 2024-10-09 03:07 | Outpatient (CLI) | payer MEDICARE, SELFPAY ==
--- NOTE | 2024-10-09 | DI.MRI_ITS ---
Exam(s) MR LOWER EXTREMITY LT WO/W EXAM: MR LOWER EXTREMITY LT WO/W CLINICAL HISTORY: HAMMERTOE LT FOOT,M20.42,NEUROMA 2ND INTERSPACE LT FOOT,G57.62 TECHNIQUE: Multiplanar multisequence MRI was performed. COMPARISON: No exams were available for comparison FINDINGS: SKIN/SUBCUTANEOUS: No evidence of obvious skin ulcer for nor subcutaneous tract. MARROW/ARTICULATIONS:There is no evidence of fracture. There is no evidence of avascular necrosis the metatarsal heads (such as Freiberg's infraction). However, there is mild T2/stir hyperintensity in the 2nd and 3rd metatarsal bones which is probably reactive marrow edema. There is no confluent hypointense T1 marrow signal. There is mild enhancement in the heads of the 2nd and 3rd metatarsals. There is no enhancement in the proximal phalanges. There are no bony erosions. There is significant synovial enhancement in the 2nd metatarsophalangeal joint. There is also soft tissue edema surrounding this joint and around the distal 2nd metatarsal and adjacent proximal phalanx of the 2nd toe. There is poor delineation of the collateral ligaments of this articulation. There is some enhancement between the distal aspects of the 3rd and 4th metatarsals, but no evidence of interdigital skull neuroma (as per request). There is no intraosseous signal abnormality nor erosions in the head of the great toe metatarsal nor in the proximal phalanx of the great toe. There are only mild degenerative changes in the great toe metatarsophalangeal joint as well as a small joint effusion. In addition, there is signal abnormality in the more lateral the 2 sesamoid bones subjacent to the great toe metatarsal head as well as mild surrounding soft tissue edema and soft tissue enhancement around this sesamoid. Similar findings are not seen in the more medial of the 2 sesamoid bones subjacent to the great toe metatarsal head. MUSCLES/TENDONS: There is mild increased signal around the flexor tendon of the 2nd digit consistent with tenosynovitis of this flexor tendon sheath. There is associated moderate hammertoe deformities of this 2nd digit. OTHER: There is no evidence of intermetatarsal Navarro's neuroma OTHER: Main Lisfranc ligament appears intact. No abnormal signal in the proximal metatarsals. IMPRESSION: 1. Findings are consistent with an inflammatory synovitis process having epicenter in the 2nd metatarsophalangeal joint and with associated periarticular soft tissue enhancement as well as tenosynovitis of the flexor tendon of this 2nd toe (and resultant moderate hammertoe deformity). There is mild bone edema in the distal aspect of the 2nd metatarsal but not within the proximal phalanx. 2. There is also some involvement of the inter metatarsal space between the heads of the 2nd and 3rd metatarsals and there is mild edema within the head of the 3rd metatarsal. 3. There is also signal abnormality in the adjacent more lateral of the 2 sesamoid bones subjacent to the great toe metatarsal head which may be related to the adjacent inflammatory process. There is also a small joint effusion in the great toe metatarsophalangeal joint which is not associated with erosions, prominent degenerative changes in this joint, nor hallux valgus. 4. There is no evidence of skin ulcer nor defect nor obvious foreign body in the region of these inflammatory findings. 5. Findings are not consistent with Navarro's interdigital neuroma (as per request). 6. Close follow-up is recommended. DATA REPOSITORY:
[2024-10-09] MEDS: Normal Saline Flush 10 ML SYR IVP (09:26)
[2024-10-09] MEDS: Gadoterate meglumine 20 ML SYRINGE 13 ML IVP (09:26)
--- NOTE | 2024-10-09 17:54 | DI.VRAD_ITS ---
PROCEDURE INFORMATION: Exam: MR Left Lower Extremity Other Than Joint Without and With Contrast; Foot Exam date and time: 10/09/2024 9:13 AM Age: 69 years old Clinical indication: Other: Hammertoe lt foot, neuroma 2nd interspace lt foot TECHNIQUE: Imaging protocol: Magnetic resonance imaging of the left lower extremity without and with contrast. Exam focused on the foot. Total images: 972 Contrast material: DOTAREM; Contrast volume: 13 ml; Contrast route: INTRAVENOUS (IV); COMPARISON: CR XR FOOT LT COMPLETE 04/17/2024 2:17 PM FINDINGS: Bones/joints: Mild T2/stir hyperintensity 2nd and 3rd metatarsal shafts, neck and head which may be reactive. Small 1st and 2nd metatarsal phalangeal joint effusions. Soft tissue edema surrounds the distal aspect of the 2nd metatarsal as well as the proximal aspect adjacent proximal phalanx. Midfoot osteoarthritic change. Mild enhancement between the distal aspect of the 3rd and 4th metatarsals. More prominent synovial enhancement second metatarsal phalangeal joint. Hammertoe deformity 2nd digit. LIGAMENTS: Lisfranc ligament: Unremarkable. No evidence of tear. TENDONS: Flexor tendons of foot: Mild intrinsic increased signal flexor tendon 2nd digit with associated tendon sheath fluid. Soft tissues: Inflammatory enhancing soft tissue edema surrounding the 2nd metatarsal phalangeal joint. A discrete enhancing nodule to suggest a neuroma not clearly identified. IMPRESSION: Consistent with inflammatory synovitis 2nd metatarsal phalangeal joint with associated flexor tenosynovitis. Dictated and Authenticated by: Jameel Avila MD. Ordering:PATRICA Greenwood MD
== END 2024-10-09 03:27 ==
LOC: DI 03:07
PROVIDERS: PCP Nurse Practitioner Adult Health; Visit Provider Podiatrist Foot & Ankle Surgery
DX: G57.62 Lesion of plantar nerve, left lower limb (principal); M20.42 Other hammer toe(s) (acquired), left foot
CPT/HCPCS: 73720

== ENCOUNTER → 2025-01-10 03:35 | Outpatient (CLI) | payer MEDICARE, SELFPAY ==
--- NOTE | 2025-01-10 13:56 | DI.RAD_ITS ---
Exam(s) XR THORACIC SPINE COMPLETE EXAM: XR THORACIC SPINE COMPLETE CLINICAL HISTORY: ? compression fracture; other bony abnl,thoracic spine pain,M54.6. TECHNIQUE: 2D digital imaging was performed. COMPARISON: MR MRI - THORACIC SPINE W/WO CONT from 06/04/2015 CR XR LUMBAR SPINE COMPLETE from 01/10/2025 FINDINGS: 3 views There is slight loss of height of superior endplate of T8, age indeterminate. There is chronic disc space narrowing at T11-T12 level on the right side of the disc space. Other disc spaces exhibit milder narrowing. There is no prominent scoliosis. No abnormal widening of the paraspinal lines. No osseous lesions evident. IMPRESSION: As above. DATA REPOSITORY: RADIATION DOSE DELIVERED:
--- NOTE | 2025-01-10 13:56 | DI.RAD_ITS ---
Exam(s) XR LUMBAR SPINE COMPLETE EXAM: XR LUMBAR SPINE COMPLETE CLINICAL HISTORY: r/o compression fracture; other bony abn, thoracic/lumbar pain, M54.6. TECHNIQUE: 2D digital imaging was performed of the lumbar spine. Five images were obtained. AP, lateral, right oblique, left oblique and L5-S1 spot views were obtained. COMPARISON: CR XR DEXA BONE DENSITY W/WO LESLI from 11/05/2020 FINDINGS: BONES: No fracture or destructive lesion. Vertebral bodies are unremarkable. Degenerative changes of the facets are seen at L4-5 and L5-S1. DISKS: There is disc space narrowing and a vacuum disc at L5-S1. ALIGNMENT: There is grade 1 anterolisthesis of L4 on L5 which is likely secondary to degenerative change. There is no spondylolysis. SOFT TISSUE: Atherosclerotic calcification is present. IMPRESSION: 1. There is no acute fracture or subluxation. 2. Mild degenerative changes in the lumbar spine. 3. Grade 1 anterolisthesis of L4 on L5. DATA REPOSITORY: RADIATION DOSE DELIVERED:
== END ==
LOC: DI 03:35
PROVIDERS: PCP Nurse Practitioner Adult Health; Visit Provider Nurse Practitioner Adult Health
DX: M51.35 Other intervertebral disc degeneration, thoracolumbar region (principal)
CPT/HCPCS: 72072; 72110

== ENCOUNTER 2025-02-28 00:32 | Outpatient (CLI) | payer MEDICARE, SELFPAY ==
[2025-02-28 09:12] LABS: Cholesterol 178 mg/dL (<200); HDL Cholesterol 76 mg/dL (>or=50)
== END 2025-02-28 00:33 | disposition home or self-care (01) ==
LOC: LBO 00:32
PROVIDERS: PCP Nurse Practitioner Adult Health; Visit Provider Nurse Practitioner Adult Health
DX: Z13.6 Encounter for screening for cardiovascular disorders (principal); Z13.220 Encounter for screening for lipoid disorders
CPT/HCPCS: 36415; 80061